=== PATIENT | female | born 2000 | race Caucasian/White ===

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

== ENCOUNTER 2021-02-14 17:19 | Emergency (ER) | payer OTHER ==
--- NOTE | 2021-02-14 17:40 | ERPHSYRPT ---
- History of Present Illness Time Seen by Provider: 02/14/21 17:35 Source: patient Exam Limitations: no limitations Patient Subjective Stated Complaint: Pt states "I was straightening my hair and I got really hot and I passed out. I passed out again in the car when we got here. I just feel really hot." Triage Nursing Assessment: Pt presented alert and oriented X 3, skin wpd pt ambulates with an upright steady gait able to speak in clear full sentences. PT in no apparent respiratory distress. Pt has been crying. Physician History: pt was having her hair straightened and has not eaten today, felt hot and passed out , some sobreath , but no dizziness or chest pain but did hit head when went down and passed out again later in car but felt hot. algerian nexus for head injury discussed with pt but she wishes to proceed with CT after risk and benefit and since this may be a type of seizure is also indicated by that route. nontender C spine excluded by nexus however. neuro vis filds all intact. chest and abd nontender and clear. full ROM all ext. denies meds or any drug use, but agrees to testing. Witnessed: by family, by friend Prior Episodes: multiple episodes today Timing/Duration: today Precipitating Factors: recent head trauma, other (hot and not eating drinking) Context: other (having hair straightened - no chemicals involved. ) Loss of Consciousness: brief (seconds) Charcter of event(s): collapsed, felt faint Allergies/Adverse Reactions: No Known Drug Allergies Allergy (Verified 12/15/20 06:42) Home Medications: Medroxyprogesterone Acet [Depo-Provera] 1 ml IM UD 08/30/20 [History] Hx Tetanus, Diphtheria Vaccination/Date Given: No Hx Influenza Vaccination/Date Given: No Hx Pneumococcal Vaccination/Date Given: No Immunizations Up to Date: Yes Travel Risk - International Travel Have you traveled outside of the country in past 3 weeks: No - Coronavirus Screening Are you exhibiting any of the following symptoms?: No Close contact with a COVID-19 positive Pt in past 14-21 Days: No - Vaccine Status Have you recieved a Covid-19 vaccination: No - Past Medical History Pertinent Past Medical History: Yes Neurological History: No Pertinent History ENT History: No Pertinent History Cardiac History: No Pertinent History Respiratory History: No Pertinent History Endocrine Medical History: No Pertinent History Musculoskeletal History: No Pertinent History GI Medical History: Gallbladder Disease History: No Pertinent History Psycho-Social History: No Pertinent History Female Reproductive Disorders: No Pertinent History Other Medical History: recent n/v, diarrhea, stomach bloating - Past Surgical History Past Surgical History: Yes Neuro Surgical History: No Pertinent History Cardiac: No Pertinent History Respiratory: No Pertinent History Gastrointestinal: Cholecystectomy Genitourinary: No Pertinent History Musculoskeletal: No Pertinent History Female Surgical History: No Pertinent History Other Surgical History: EGD - Social History Smoking Status: Never smoker Exposure to second hand smoke: No Drug Use: none Patient Lives Alone: No - Female History Hx Last Menstrual Period: 01/09/2021 Hx Now: No - Review of Systems Constitutional: No Fever, No Chills Eyes: No Symptoms Ears, Nose, & Throat: No Symptoms Respiratory: No Cough, No Dyspnea Cardiac: No Chest Pain, No Edema, No Syncope Abdominal/Gastrointestinal: No Abdominal Pain, No Nausea, No Vomiting, No Diar giovanni Genitourinary Symptoms: No Dysuria Musculoskeletal: Fall, No Back Pain, No Neck Pain Skin: No Rash Neurological: Headache, No Dizziness, No Focal Weakness, No Sensory Changes Psychological: No Symptoms Endocrine: No Symptoms Hematologic/Lymphatic: No Symptoms Immunological/Allergic: No Symptoms All Other Systems: Reviewed and Negative Physical Exam - Nursing Vital Signs Nursing Vital Signs: Initial Vital Signs Temperature 97.7 F 02/14/21 17:20 Pulse Rate 64 02/14/21 17:20 Respiratory Rate 20 02/14/21 17:20 Blood Pressure 112/70 02/14/21 17:20 O2 Sat by Pulse Oximetry 100 02/14/21 17:20 Pain Scale Pain Intensity 0 - [place] Coma Scale Best Eye Response ([place]): (4) open spontaneously Best Verbal Response (Herve): (5) oriented Best Motor Response (Herve): (6) obeys commands [place] Total: 15 - Physical Exam General Appearance: no apparent distress, alert Eye Exam: bilateral eye: PERRL, EOMI Ears, Nose, Throat Exam: normal ENT inspection, pharynx normal, moist mucous membranes Neck Exam: normal inspection, non-tender, supple, full range of motion Respiratory: normal breath sounds, lungs clear, No chest tenderness, No respiratory distress Cardiovascular: regular rate/rhythm, capillary refill <2 sec, No murmur, No pulse deficit Gastrointestinal: soft, No tenderness, No distention, No mass Pelvic Exam: deferred Rectal Exam: deferred Back Exam: normal inspection, normal range of motion, No CVA tenderness, No vertebral tenderness Extremity Exam: normal inspection, normal range of motion, pelvis stable, No tenderness Peripheral Pulses: carotid (R): 2+, carotid (L): 2+, femoral (R): 2+, femoral (L): 2+, dorsalis-pedis (R): 2+, dorsalis-pedis (L): 2+ Mental Status: alert, oriented x 3, 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 Exam: normal speech, PERRL, No facial droop Coordination/Gait: normal finger to nose Motor/Sensory: no motor deficit, no sensory deficit, no pronator drift DTR: bicep (R): 2+, bicep (L): 2+, tricep (R): 2+, tricep (L): 2+, knee (R): 2+, knee (L): 2+, ankle (R): 2+, ankle (L): 2+ Skin Exam: normal color, warm, dry, No rash SpO2 Interpretation: normal SpO2: 100 O2 Delivery: Room Air - Course Nursing assessment & vital signs reviewed: Yes EKG Interpreted by Me: Sinus Rhythm, NORMAL AXIS, NORMAL INTERVALS, NORMAL QRS, Non-specific ST Changes Ordered Tests: Active Orders 24 hr Category Date Time Status Guidance Counselor STAT Care 02/14/21 17:44 Active Clean Catch Urine Specimen STAT Care 02/14/21 17:42 Active EKG-ER Only STAT Care 02/14/21 17:42 Active IV Insertion STAT Care 02/14/21 17:42 Active Pulse Oximetry (ED) STAT Care 02/14/21 17:42 Active HEAD WITHOUT CONTRAST [CT] Stat Exams 02/14/21 17:43 Completed CBC W DIFF Stat Lab 02/14/21 17:40 Completed CMP Stat Lab 02/14/21 17:40 Completed D-DIMER QUANTITATIVE Stat Lab 02/14/21 17:40 Completed HCG QUALITATIVE,SERUM Stat Lab 02/14/21 17:40 Completed TROPONIN Q3H Lab 02/14/21 17:40 Completed UA W/RFX UR CULTURE Stat Lab 02/14/21 18:06 Completed Urine Triage Profile Stat Lab 02/14/21 18:06 Completed Medication Summary Discontinued Medications Generic Name Dose Route Start Last Admin Trade Name Angelique PRN Reason Stop Dose Admin Sodium Chloride 1,000 mls @ 999 mls/hr 02/14/21 17:42 02/14/21 19:45 Sodium Chloride 0.9% 1000 Ml IV 02/14/21 18:42 Infused .Q1H1M STA Infusion Sodium Chloride Confirm 02/14/21 18:09 Sodium Chloride 0.9% 1000 Ml Administered 02/14/21 18:10 Dose 1,000 mls @ ud .ROUTE .K-MED ONE Lab/Rad Data: Laboratory Result Diagrams 02/14/21 17:40 02/14/21 17:40 Laboratory Results 02/14/21 02/14/21 02/14/21 Range/Units 18:06 18:06 17:40 WBC (4.0-10.5) K/mm3 RBC (4.1-5.4) M/mm3 Hgb (12.0-16.0) gm/dl Hct (35-47) % MCV (78-100) fl MCH (26-32) pg MCHC (32-36) g/dl RDW (11.5-14.0) % Plt Count (150-450) K/mm3 MPV (7.5-11.0) fl Gran % (36.0-66.0) % Eos # (Auto) (0-0.5) Absolute Lymphs (auto) (1.0-4.6) Absolute Monos (auto) (0.0-1.3) Lymphocytes % (24.0-44.0) % Monocytes % (0.0-12.0) % Eosinophils % (0.00-5.0) % Basophils % (0.0-0.4) % Absolute Granulocytes (1.4-6.9) Basophils # (0-0.4) D-Dimer (215-500) ng/mL Sodium (137-145) mmol/L Potassium (3.5-5.1) mmol/L Chloride (98-107) mmol/L Carbon Dioxide (22-30) mmol/L Anion Gap (5-15) MEQ/L BUN (7-17) mg/dL Creatinine (0.52-1.04) mg/dL Estimated GFR ML/MIN Glucose (74-106) mg/dL Calcium (8.4-10.2) mg/dL Total Bilirubin (0.2-1.3) mg/dL AST (14-36) U/L ALT (0-35) U/L Alkaline Phosphatase (38-126) U/L Troponin I < 0.012 (0.000-0.034) ng/mL Serum Total Protein (6.3-8.2) g/dL Albumin (3.5-5.0) g/dL Serum , Qual (Negative) Urine Color YELLOW (YELLOW) Urine Appearance SLIGHTLY CLOUDY (CLEAR) Urine pH 5.0 (5-6) Ur Specific [place] 1.026 (1.005-1.025) Urine Protein NEGATIVE (Negative) Urine Ketones NEGATIVE (NEGATIVE) Urine Blood NEGATIVE (0-5) Jose Luis/ul Urine Nitrite NEGATIVE (NEGATIVE) Urine Bilirubin NEGATIVE (NEGATIVE) Urine Urobilinogen NEGATIVE (0-1) mg/dL Ur Leukocyte Esterase NEGATIVE (NEGATIVE) Urine WBC (Auto) 3-5 (0-5) /HPF Urine RBC (Auto) 0-2 (0-2) /HPF U Epithel Cells (Auto) RARE (FEW) /HPF Urine Bacteria (Auto) NONE (NEGATIVE) /HPF Urine Mucus (Auto) SLIGHT (NEGATIVE) /HPF Urine Culture Reflexed NO (NO) Urine Glucose NEGATIVE (NEGATIVE) mg/dL Urine Opiates Level NEGATIVE (NEGATIVE) Ur Methadone NEGATIVE (NEGATIVE) Urine Barbiturates NEGATIVE (NEGATIVE) Ur Phencyclidine (PCP) NEGATIVE (NEGATIVE) Urine Amphetamine NEGATIVE (NEGATIVE) U Benzodiazepine Level NEGATIVE (NEGATIVE) Urine Cocaine NEGATIVE (NEGATIVE) Urine Marijuana (THC) NEGATIVE (NEGATIVE) 02/14/21 02/14/21 02/14/21 Range/Units 17:40 17:40 17:40 WBC (4.0-10.5) K/mm3 RBC (4.1-5.4) M/mm3 Hgb (12.0-16.0) gm/dl Hct (35-47) % MCV (78-100) fl MCH (26-32) pg MCHC (32-36) g/dl RDW (11.5-14.0) % Plt Count (150-450) K/mm3 MPV (7.5-11.0) fl Gran % (36.0-66.0) % Eos # (Auto) (0-0.5) Absolute Lymphs (auto) (1.0-4.6) Absolute Monos (auto) (0.0-1.3) Lymphocytes % (24.0-44.0) % Monocytes % (0.0-12.0) % Eosinophils % (0.00-5.0) % Basophils % (0.0-0.4) % Absolute Granulocytes (1.4-6.9) Basophils # (0-0.4) D-Dimer 473 (215-500) ng/mL Sodium 140 (137-145) mmol/L Potassium 3.6 (3.5-5.1) mmol/L Chloride 102 (98-107) mmol/L Carbon Dioxide 25 (22-30) mmol/L Anion Gap 15.6 H (5-15) MEQ/L BUN 12 (7-17) mg/dL Creatinine 0.66 (0.52-1.04) mg/dL Estimated GFR > 60.0 ML/MIN Glucose 85 (74-106) mg/dL Calcium 9.7 (8.4-10.2) mg/dL Total Bilirubin 0.70 (0.2-1.3) mg/dL AST 22 (14-36) U/L ALT 16 (0-35) U/L Alkaline Phosphatase 84 (38-126) U/L Troponin I (0.000-0.034) ng/mL Serum Total Protein 8.5 H (6.3-8.2) g/dL Albumin 5.1 H (3.5-5.0) g/dL Serum , Qual NEGATIVE (Negative) Urine Color (YELLOW) Urine Appearance (CLEAR) Urine pH (5-6) Ur Specific [place] (1.005-1.025) Urine Protein (Negative) Urine Ketones (NEGATIVE) Urine Blood (0-5) Jose Luis/ul Urine Nitrite (NEGATIVE) Urine Bilirubin (NEGATIVE) Urine Urobilinogen (0-1) mg/dL Ur Leukocyte Esterase (NEGATIVE) Urine WBC (Auto) (0-5) /HPF Urine RBC (Auto) (0-2) /HPF U Epithel Cells (Auto) (FEW) /HPF Urine Bacteria (Auto) (NEGATIVE) /HPF Urine Mucus (Auto) (NEGATIVE) /HPF Urine Culture Reflexed (NO) Urine Glucose (NEGATIVE) mg/dL Urine Opiates Level (NEGATIVE) Ur Methadone (NEGATIVE) Urine Barbiturates (NEGATIVE) Ur Phencyclidine (PCP) (NEGATIVE) Urine Amphetamine (NEGATIVE) U Benzodiazepine Level (NEGATIVE) Urine Cocaine (NEGATIVE) Urine Marijuana (THC) (NEGATIVE) 02/14/21 Range/Units 17:40 WBC 8.8 (4.0-10.5) K/mm3 RBC 4.76 (4.1-5.4) M/mm3 Hgb 13.3 (12.0-16.0) gm/dl Hct 40.8 (35-47) % MCV 85.7 (78-100) fl MCH 27.9 (26-32) pg MCHC 32.6 (32-36) g/dl RDW 13.0 (11.5-14.0) % Plt Count 267 (150-450) K/mm3 MPV 10.1 (7.5-11.0) fl Gran % 62.0 (36.0-66.0) % Eos # (Auto) 0.11 (0-0.5) Absolute Lymphs (auto) 2.79 (1.0-4.6) Absolute Monos (auto) 0.45 (0.0-1.3) Lymphocytes % 31.6 (24.0-44.0) % Monocytes % 5.1 (0.0-12.0) % Eosinophils % 1.2 (0.00-5.0) % Basophils % 0.1 (0.0-0.4) % Absolute Granulocytes 5.48 (1.4-6.9) Basophils # 0.01 (0-0.4) D-Dimer (215-500) ng/mL Sodium (137-145) mmol/L Potassium (3.5-5.1) mmol/L Chloride (98-107) mmol/L Carbon Dioxide (22-30) mmol/L Anion Gap (5-15) MEQ/L BUN (7-17) mg/dL Creatinine (0.52-1.04) mg/dL Estimated GFR ML/MIN Glucose (74-106) mg/dL Calcium (8.4-10.2) mg/dL Total Bilirubin (0.2-1.3) mg/dL AST (14-36) U/L ALT (0-35) U/L Alkaline Phosphatase (38-126) U/L Troponin I (0.000-0.034) ng/mL Serum Total Protein (6.3-8.2) g/dL Albumin (3.5-5.0) g/dL Serum , Qual (Negative) Urine Color (YELLOW) Urine Appearance (CLEAR) Urine pH (5-6) Ur Specific [place] (1.005-1.025) Urine Protein (Negative) Urine Ketones (NEGATIVE) Urine Blood (0-5) Jose Luis/ul Urine Nitrite (NEGATIVE) Urine Bilirubin (NEGATIVE) Urine Urobilinogen (0-1) mg/dL Ur Leukocyte Esterase (NEGATIVE) Urine WBC (Auto) (0-5) /HPF Urine RBC (Auto) (0-2) /HPF U Epithel Cells (Auto) (FEW) /HPF Urine Bacteria (Auto) (NEGATIVE) /HPF Urine Mucus (Auto) (NEGATIVE) /HPF Urine Culture Reflexed (NO) Urine Glucose (NEGATIVE) mg/dL Urine Opiates Level (NEGATIVE) Ur Methadone (NEGATIVE) Urine Barbiturates (NEGATIVE) Ur Phencyclidine (PCP) (NEGATIVE) Urine Amphetamine (NEGATIVE) U Benzodiazepine Level (NEGATIVE) Urine Cocaine (NEGATIVE) Urine Marijuana (THC) (NEGATIVE) - Progress Progress: improved, re-examined Progress Note: 02/14/21 21:31 discussed limitations of testing performed with pt and that we have not yet determined an etiology and that undetected pathology could still be evolving. she understands and prefers DC with outpt w/u and f/u rather than further eval in ER or hosp obs at this time and has the capacity to make that choice. Counseled pt/family regarding: lab results, diagnosis, need for follow-up, rad results - Departure Departure Disposition: Home Clinical Impression: Syncopal episodes Condition: Good Critical Care Time: No Referrals: DAQUAN HARTLEY [Primary Care Provider] - Instructions: Syncope (Fainting) (DC) Additional Instructions: we have not determined the cause for your fainting even though the testing was not indicating a serious problem at this time , and overheating/lack of eating may have contributed. You should not drive until evaluated by your Dr in case these were some type of seizure. try to see your Dr to continue the workup this week early. heart and other problems also could be evolving and not yet detected even with normal testing so far. return meantime if any concerns or further symptoms.
[2021-02-14] MEDS ORDERED: Sodium Chloride 0.9% 1000 ML 1,000 ML IV STA (17:42)
[2021-02-14 17:57] LABS: Absolute Neutrophil Ct (ANC) 5.48 (1.4-6.9); BASOPHIL % 0.1 % (0.0-0.4); Basophil (Absolute #) 0.01 (0-0.4); Eosinophil % 1.2 % (0.00-5.0); Eosinophil (Absolute #) 0.11 (0-0.5); Hematocrit 40.8 % (35-47); Hemoglobin 13.3 gm/dl (12.0-16.0); Lymphocyte (Absolute #) 2.79 (1.0-4.6); Lymphocytes % 31.6 % (24.0-44.0); Mean Cell Volume 85.7 fl (78-100); Mean Corpuscular Hemoglobin 27.9 pg (26-32); Mean Corpuscular Hgb Concent. 32.6 g/dl (32-36); Mean Platelet Volume 10.1 fl (7.5-11.0); Monocyte (Absolute #) 0.45 (0.0-1.3); Monocytes % 5.1 % (0.0-12.0); Platelet Count 267 K/mm3 (150-450); Red Blood Count 4.76 M/mm3 (4.1-5.4); White Blood Count 8.8 K/mm3 (4.0-10.5)
[2021-02-14 18:07] LABS: ALBUMIN 5.1 g/dL (3.5-5.0); ALKALINE PHOSPHATASE 84 U/L (38-126); ANION GAP 15.6 MEQ/L (5-15); BLOOD UREA NITROGEN 12 mg/dL (7-17); CHLORIDE 102 mmol/L (98-107); Calcium 9.7 mg/dL (8.4-10.2); Carbon Dioxide 25 mmol/L (22-30); Creatinine 1 0.66 mg/dL (0.52-1.04); EST GLOMERULAR FILTRATION RATE > 60.0 ML/MIN; Glucose 85 mg/dL (74-106); Potassium 3.6 mmol/L (3.5-5.1); SGOT/AST 22 U/L (14-36); SGPT/ALT 16 U/L (0-35); SODIUM 140 mmol/L (137-145); Total Protein 8.5 g/dL (6.3-8.2)
[2021-02-14] MEDS ORDERED: Sodium Chloride 0.9% 1000 ML 1,000 ML ONE (18:09)
[2021-02-14 18:34] LABS: Appearance SLIGHTLY CLOUDY (CLEAR); Bilirubin NEGATIVE (NEGATIVE); Blood NEGATIVE Ery/ul (0-5); Epithelial Cells RARE /HPF (FEW); Glucose NEGATIVE (NEGATIVE); Ketones NEGATIVE (NEGATIVE); Leukocyte Esterase NEGATIVE (NEGATIVE); Mucus SLIGHT /HPF (NEGATIVE); Nitrite NEGATIVE (NEGATIVE); Protein,Urine Dip NEGATIVE (Negative); RBC 0-2 /HPF (0-2); Specific Gravity 1.026 (1.005-1.025); Urobilinogen NEGATIVE mg/dL (0-1)
[2021-02-14 18:40] LABS: Amphetamine,Urine NEGATIVE (NEGATIVE); Barbiturate,Urine NEGATIVE (NEGATIVE); Benzodiazepine,Urine NEGATIVE (NEGATIVE); Cocaine,Urine NEGATIVE (NEGATIVE); Methadone,Urine NEGATIVE (NEGATIVE); Opiate,Urine NEGATIVE (NEGATIVE); PCP,Urine NEGATIVE (NEGATIVE); THC,Urine NEGATIVE (NEGATIVE)
[2021-02-14 20:10] VITALS: PULSE 68
--- NOTE | 2021-02-14 20:20 | XRAY ---
Indication: Syncope with posterior head injury. Multiple contiguous axial images obtained through the head without contrast. Comparison: January 30, 2019. Normal appearing brain parenchyma, ventricles, and bony calvarium. Visualized paranasal sinuses and mastoid air cells are clear. Impression: Continued normal CT head without contrast exam. Comment: Preliminary interpretation was made by [facility]. No critical discrepancy.
[2021-02-14 22:08] VITALS: BP 106/68; O2SAT 99
== END 2021-02-14 22:00 | disposition home or self-care (01) ==
LOC: ED 17:19
DX: R55 Syncope and collapse (principal)
CPT/HCPCS: 36000; 36415; 70450; 80053; 80307; 81001; 81025; 84484; 85025; 85379; 93005; 93041; 94760; 96360; 99284

== ENCOUNTER 2021-02-25 20:16 | Emergency (ER) | payer OTHER ==
[2021-02-25 20:29] VITALS: BP 133/70; PULSE 82; O2SAT 98
[2021-02-25] MEDS ORDERED: Augmentin 875-125 Tablet PO ONE (20:32)
[2021-02-25] MEDS ORDERED: TORAdol 30 mg Injection IM ONE (20:32)
[2021-02-25] MEDS ORDERED: Augmentin 875-125 Tablet ONE (20:43)
[2021-02-25] MEDS ORDERED: TORAdol 30 mg Injection ONE (20:43)
--- NOTE | 2021-02-25 20:54 | ERPHSYRPT ---
- History of Present Illness Time Seen by Provider: 02/25/21 20:19 Source: patient, family Exam Limitations: no limitations Patient Subjective Stated Complaint: . Triage Nursing Assessment: . Physician History: 21 years old female presented in the ER with chief complaint of right upper leg chest below the knee with dog bite. Patient reports she went to her neighbor's house and got bit by their dog. There was bleeding initially but stopped after applying pressure. She does not have any big laceration but has bite hermosillo multiple sites. She is up-to-date with immunizations. She is complaining of dull aching to sharp moderate intensity pain which is more with palpation and movements of right knee and better with being still. Unsure about immunization status of the dog. PD is aware and dog is at neighbors house. Allergies/Adverse Reactions: No Known Drug Allergies Allergy (Verified 02/25/21 20:25) Home Medications: Medroxyprogesterone Acet [Depo-Provera] 1 ml IM UD 08/30/20 [History] Escitalopram Oxalate 10 mg [Lexapro 10 MG] 10 mg PO DAILY 02/25/21 [History] Hx Tetanus, Diphtheria Vaccination/Date Given: Yes Hx Influenza Vaccination/Date Given: No Hx Pneumococcal Vaccination/Date Given: No Immunizations Up to Date: Yes Travel Risk - International Travel Have you traveled outside of the country in past 3 weeks: No - Coronavirus Screening Are you exhibiting any of the following symptoms?: No Close contact with a COVID-19 positive Pt in past 14-21 Days: No - Vaccine Status Have you recieved a Covid-19 vaccination: No - Review of Systems Constitutional: No Symptoms Eyes: No Symptoms Ears, Nose, & Throat: No Symptoms Respiratory: No Symptoms Cardiac: No Symptoms Abdominal/Gastrointestinal: No Symptoms Genitourinary Symptoms: No Symptoms Musculoskeletal: Injury Skin: Induration, Skin Lesions Neurological: No Symptoms Psychological: No Symptoms Endocrine: No Symptoms Hematologic/Lymphatic: No Symptoms Immunological/Allergic: No Symptoms - Past Medical History Pertinent Past Medical History: Yes Neurological History: No Pertinent History ENT History: No Pertinent History Cardiac History: No Pertinent History Respiratory History: No Pertinent History Endocrine Medical History: No Pertinent History Musculoskeletal History: No Pertinent History GI Medical History: No Pertinent History History: No Pertinent History Psycho-Social History: Anxiety, Depression Female Reproductive Disorders: No Pertinent History Other Medical History: recent n/v, diarrhea, stomach bloating - Past Surgical History Past Surgical History: Yes Neuro Surgical History: No Pertinent History Cardiac: No Pertinent History Respiratory: No Pertinent History Gastrointestinal: Cholecystectomy Genitourinary: No Pertinent History Musculoskeletal: No Pertinent History Female Surgical History: No Pertinent History Other Surgical History: EGD - Social History Smoking Status: Never smoker Exposure to second hand smoke: No Drug Use: none Patient Lives Alone: No - Female History Hx Last Menstrual Period: DEPO-PROVERA Hx Now: No - Nursing Vital Signs Nursing Vital Signs: Initial Vital Signs Temperature 98.6 F 02/25/21 20:28 Pulse Rate 82 02/25/21 20:28 Respiratory Rate 18 02/25/21 20:28 Blood Pressure 133/70 02/25/21 20:28 O2 Sat by Pulse Oximetry 98 02/25/21 20:28 Pain Scale Pain Intensity 10 - Physical Exam General Appearance: no apparent distress Neck Exam: normal inspection, supple, full range of motion Cardiovascular/Respiratory Exam: normal breath sounds, regular rate/rhythm Legs Exam: right leg: pain, soft tissue tenderness, swelling, other (Multiple stab/bite hermosillo just below her right knee. Intact range of motion of right knee. No active bleeding or spurting. Abrasion and scratches as well.), left leg: non-tender, normal inspection, normal range of motion, no evidence of injury Knees Exam: bilateral knee: non-tender, normal inspection, normal range of motion, no evidence of injury Neuro/Tendon Exam: normal sensation, normal motor functions, normal tendon functions Mental Status Exam: alert, oriented x 3, cooperative Skin Exam: normal color SpO2 Interpretation: normal SpO2: 98 O2 Delivery: Room Air Ordered Tests: Medication Summary Discontinued Medications Generic Name Dose Route Start Last Admin Trade Name Freq PRN Reason Stop Dose Admin Amoxicillin/Clavulanate Potassium 875 mg 02/25/21 20:32 02/25/21 20:45 Augmentin 875-125 Tablet PO 02/25/21 20:33 875 mg STAT ONE Administration Amoxicillin/Clavulanate Potassium Confirm 02/25/21 20:43 Augmentin 875-125 Tablet Administered 02/25/21 20:44 Dose 875 mg .ROUTE .STK-MED ONE Ketorolac Tromethamine 30 mg 02/25/21 20:32 02/25/21 20:49 Toradol 30 Mg Injection IM 02/25/21 20:33 30 mg STAT ONE Administration Ketorolac Tromethamine Confirm 02/25/21 20:43 Toradol 30 Mg Injection Administered 02/25/21 20:44 Dose 30 mg .ROUTE .STK-MED ONE - Progress Progress: improved Progress Note: 02/25/21 21:41 She is given Toradol for symptomatic relief and started on Augmentin. Of multiple stab wound from dog's teeth does not need any suturing. Thoroughly cleaned and dressing applied. Animal bite paperwork is filled and will be sent to health department. Dog is not showing any signs of being rabid. Do not think needs antirabies vaccine. Recommended outpatient follow-up. Counseled pt/family regarding: diagnosis, need for follow-up - Departure Departure Disposition: Home Clinical Impression: Dog bite Qualifiers: Encounter type: initial encounter Qualified Code(s): W54.0XXA - Bitten by dog, initial encounter Condition: Stable Critical Care Time: No Referrals: DAQUAN HARTLEY [Primary Care Provider] - (1-2 days for reevaluation) Instructions: Animal Bites (DC) Additional Instructions: Take Tylenol/ibuprofen as needed for pain. Keep it clean and follow-up with primary care physician for reevaluation in the next couple of days. Return to ER for increasing pain swelling redness discharge, limiting movements of right knee or if develop fever chills. Prescriptions: Ibuprofen 600 mg PO Q6HPRN PRN 10 Days #20 tablet PRN Reason: Pain Amox Tr/Potass Clav. 875 mg [Augmentin 875-125 Tablet] 875 mg PO BID #14 tablet
== END 2021-02-25 21:47 | disposition home or self-care (01) ==
LOC: ED 20:16
DX: S80.211A Abrasion, right knee, initial encounter (principal); S81.051A Open bite, right knee, initial encounter; R26.0 Ataxic gait; W54.0XXA Bitten by dog, initial encounter
CPT/HCPCS: 96372; 99284; J1885; A9270-GY

== ENCOUNTER 2021-04-08 13:56 | Emergency (ER) | payer OTHER ==
[2012-11-24 01:11] VITALS: BP 125/62
== END 2021-04-08 14:40 | disposition home or self-care (01) ==
LOC: ED 13:56
DX: Z53.9 Procedure and treatment not carried out, unspecified reason (principal)
CPT/HCPCS: 99282

== ENCOUNTER 2021-07-31 23:26 | Emergency (ER) | payer OTHER ==
--- NOTE | 2021-07-31 23:35 | ERPHSYRPT ---
- History of Present Illness Time Seen by Provider: 07/31/21 23:35 Source: patient Exam Limitations: no limitations Physician History: This is a 21-year-old white female who has had a history of dizziness and syncopal episodes in the past and presents with approximately 2-day history of intermittent dizziness. The most recent episode was just prior to arrival to the emergency room. [place] and suddenly felt very dizzy and flushed. Patient denies chest pain. She denies nausea vomiting diarrhea. She has no abdominal pain. She has not had any fevers. Patient denies illicit drug use. She denies any new medications. She denies head injury. Timing/Duration: day(s) (2), intermittent, worse Severity: mild Character of Deficits: none Deficits: no difficulties Baseline/Normal Cognition: alert oriented x 3 Current Cognition: alert oriented x 3 Baseline Gait: walks w/o assistance Associated Symptoms: denies symptoms Allergies/Adverse Reactions: No Known Drug Allergies Allergy (Verified 07/31/21 23:37) Home Medications: Medroxyprogesterone Acet [Depo-Provera] 1 ml IM UD 08/30/20 [History] Escitalopram Oxalate 10 mg [Lexapro 10 MG] 10 mg PO DAILY 02/25/21 [History] Pantoprazole 20 mg [Protonix 20MG Tablet] 20 mg PO DAILY 07/31/21 [History] Hx Tetanus, Diphtheria Vaccination/Date Given: Yes Hx Influenza Vaccination/Date Given: No Hx Pneumococcal Vaccination/Date Given: No Travel Risk - International Travel Have you traveled outside of the country in past 3 weeks: No - Coronavirus Screening Are you exhibiting any of the following symptoms?: No Close contact with a COVID-19 positive Pt in past 14-21 Days: No - Vaccine Status Have you recieved a Covid-19 vaccination: No - Review of Systems Constitutional: No Symptoms Eyes: No Symptoms Ears, Nose, & Throat: No Symptoms Respiratory: No Symptoms Cardiac: No Symptoms Abdominal/Gastrointestinal: No Symptoms Genitourinary Symptoms: No Symptoms Musculoskeletal: No Symptoms Skin: No Symptoms Neurological: Dizziness Psychological: No Symptoms Endocrine: No Symptoms Hematologic/Lymphatic: No Symptoms Immunological/Allergic: No Symptoms All Other Systems: Reviewed and Negative - Past Medical History Pertinent Past Medical History: Yes Neurological History: No Pertinent History ENT History: No Pertinent History Cardiac History: No Pertinent History Respiratory History: No Pertinent History Endocrine Medical History: No Pertinent History Musculoskeletal History: No Pertinent History GI Medical History: No Pertinent History History: No Pertinent History Psycho-Social History: Anxiety, Depression Female Reproductive Disorders: No Pertinent History Other Medical History: recent n/v, diarrhea, stomach bloating - Past Surgical History Past Surgical History: Yes Neuro Surgical History: No Pertinent History Cardiac: No Pertinent History Respiratory: No Pertinent History Gastrointestinal: Cholecystectomy Genitourinary: No Pertinent History Musculoskeletal: No Pertinent History Female Surgical History: No Pertinent History Other Surgical History: EGD - Social History Smoking Status: Never smoker Exposure to second hand smoke: No Drug Use: none Patient Lives Alone: No - Nursing Vital Signs Nursing Vital Signs: Initial Vital Signs Temperature 98.9 F 07/31/21 23:38 Pulse Rate 75 07/31/21 23:38 Blood Pressure 116/76 07/31/21 23:38 O2 Sat by Pulse Oximetry 97 07/31/21 23:38 Pain Scale Pain Intensity 0 - Herve Coma Scale Best Eye Response ([place]): (4) open spontaneously Best Verbal Response ([place]): (5) oriented Best Motor Response ([place]): (6) obeys commands [place] Total: 15 - Physical Exam General Appearance: no apparent distress, alert, anxiety Eye Exam: bilateral eye: normal inspection, PERRL, EOMI Ears, Nose, Throat Exam: normal ENT inspection, moist mucous membranes Neck Exam: normal inspection, non-tender, supple, full range of motion Respiratory: normal breath sounds, lungs clear, airway intact, No chest tenderness, No respiratory distress Cardiovascular: regular rate/rhythm, normal heart sounds, normal peripheral pulses Gastrointestinal: soft, normal bowel sounds, No tenderness Pelvic Exam: not done Rectal Exam: not done Back Exam: normal inspection, normal range of motion, No CVA tenderness, No vertebral tenderness Extremity Exam: normal inspection, normal range of motion, pelvis stable Mental Status: alert, oriented x 3, 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 When compared to EKG dated 02/14/2021, there are no changes.) Ordered Tests: Active Orders 24 hr Category Date Time Status EKG-ER Only STAT Care 08/01/21 00:04 Active CBC W DIFF Stat Lab 08/01/21 00:19 Completed CMP Stat Lab 08/01/21 00:19 Completed HCG,QUALITATIVE URINE Stat Lab 08/01/21 00:06 Completed UA W/RFX UR CULTURE Stat Lab 08/01/21 00:06 Completed Urine Triage Profile Stat Lab 08/01/21 00:09 Completed Lab/Rad Data: Laboratory Result Diagrams 08/01/21 00:19 08/01/21 00:19 Laboratory Results 08/01/21 08/01/21 08/01/21 Range/Units 00:19 00:19 00:09 WBC 8.0 (4.0-10.5) K/mm3 RBC 4.33 (4.1-5.4) M/mm3 Hgb 12.2 (12.0-16.0) gm/dl Hct 37.8 (35-47) % MCV 87.3 (78-100) fl MCH 28.2 (26-32) pg MCHC 32.3 (32-36) g/dl RDW 12.9 (11.5-14.0) % Plt Count 225 (150-450) K/mm3 MPV 10.4 (7.5-11.0) fl Gran % 55.8 (36.0-66.0) % Eos # (Auto) 0.14 (0-0.5) Absolute Lymphs (auto) 2.78 (1.0-4.6) Absolute Monos (auto) 0.59 (0.0-1.3) Lymphocytes % 34.9 (24.0-44.0) % Monocytes % 7.4 (0.0-12.0) % Eosinophils % 1.8 (0.00-5.0) % Basophils % 0.1 (0.0-0.4) % Absolute Granulocytes 4.44 (1.4-6.9) Basophils # 0.01 (0-0.4) Sodium 139 (137-145) mmol/L Potassium 4.4 (3.5-5.1) mmol/L Chloride 103 (98-107) mmol/L Carbon Dioxide 25 (22-30) mmol/L Anion Gap 15.7 H (5-15) MEQ/L BUN 13 (7-17) mg/dL Creatinine 0.59 (0.52-1.04) mg/dL Estimated GFR > 60.0 ML/MIN Glucose 95 (74-106) mg/dL Calcium 9.1 (8.4-10.2) mg/dL Total Bilirubin 0.50 (0.2-1.3) mg/dL AST 21 (14-36) U/L ALT 15 (0-35) U/L Alkaline Phosphatase 81 (38-126) U/L Serum Total Protein 7.7 (6.3-8.2) g/dL Albumin 4.5 (3.5-5.0) g/dL Urine Color (YELLOW) Urine Appearance (CLEAR) Urine pH (5-6) Ur Specific [place] (1.005-1.025) Urine Protein (Negative) Urine Ketones (NEGATIVE) Urine Blood (0-5) Jose Luis/ul Urine Nitrite (NEGATIVE) Urine Bilirubin (NEGATIVE) Urine Urobilinogen (0-1) mg/dL Ur Leukocyte Esterase (NEGATIVE) Urine WBC (Auto) (0-5) /HPF Urine RBC (Auto) (0-2) /HPF U Epithel Cells (Auto) (FEW) /HPF Urine Bacteria (Auto) (NEGATIVE) /HPF Urine Mucus (Auto) (NEGATIVE) /HPF Urine Culture Reflexed (NO) Urine Glucose (NEGATIVE) mg/dL Urine HCG, Qual (Negative) Urine Opiates Level NEGATIVE (NEGATIVE) Ur Methadone NEGATIVE (NEGATIVE) Urine Barbiturates NEGATIVE (NEGATIVE) Ur Phencyclidine (PCP) NEGATIVE (NEGATIVE) Urine Amphetamine NEGATIVE (NEGATIVE) U Benzodiazepine Level NEGATIVE (NEGATIVE) Urine Cocaine NEGATIVE (NEGATIVE) Urine Marijuana (THC) NEGATIVE (NEGATIVE) 08/01/21 08/01/21 Range/Units 00:06 00:06 WBC (4.0-10.5) K/mm3 RBC (4.1-5.4) M/mm3 Hgb (12.0-16.0) gm/dl Hct (35-47) % MCV (78-100) fl MCH (26-32) pg MCHC (32-36) g/dl RDW (11.5-14.0) % Plt Count (150-450) K/mm3 MPV (7.5-11.0) fl Gran % (36.0-66.0) % Eos # (Auto) (0-0.5) Absolute Lymphs (auto) (1.0-4.6) Absolute Monos (auto) (0.0-1.3) Lymphocytes % (24.0-44.0) % Monocytes % (0.0-12.0) % Eosinophils % (0.00-5.0) % Basophils % (0.0-0.4) % Absolute Granulocytes (1.4-6.9) Basophils # (0-0.4) Sodium (137-145) mmol/L Potassium (3.5-5.1) mmol/L Chloride (98-107) mmol/L Carbon Dioxide (22-30) mmol/L Anion Gap (5-15) MEQ/L BUN (7-17) mg/dL Creatinine (0.52-1.04) mg/dL Estimated GFR ML/MIN Glucose (74-106) mg/dL Calcium (8.4-10.2) mg/dL Total Bilirubin (0.2-1.3) mg/dL AST (14-36) U/L ALT (0-35) U/L Alkaline Phosphatase (38-126) U/L Serum Total Protein (6.3-8.2) g/dL Albumin (3.5-5.0) g/dL Urine Color YELLOW (YELLOW) Urine Appearance SLIGHTLY CLOUDY (CLEAR) Urine pH 6.0 (5-6) Ur Specific [place] 1.028 (1.005-1.025) Urine Protein NEGATIVE (Negative) Urine Ketones NEGATIVE (NEGATIVE) Urine Blood NEGATIVE (0-5) Jose Luis/ul Urine Nitrite NEGATIVE (NEGATIVE) Urine Bilirubin NEGATIVE (NEGATIVE) Urine Urobilinogen 2 (0-1) mg/dL Ur Leukocyte Esterase NEGATIVE (NEGATIVE) Urine WBC (Auto) 6-10 (0-5) /HPF Urine RBC (Auto) NONE (0-2) /HPF U Epithel Cells (Auto) RARE (FEW) /HPF Urine Bacteria (Auto) NONE (NEGATIVE) /HPF Urine Mucus (Auto) SLIGHT (NEGATIVE) /HPF Urine Culture Reflexed NO (NO) Urine Glucose NEGATIVE (NEGATIVE) mg/dL Urine HCG, Qual NEGATIVE (Negative) Urine Opiates Level (NEGATIVE) Ur Methadone (NEGATIVE) Urine Barbiturates (NEGATIVE) Ur Phencyclidine (PCP) (NEGATIVE) Urine Amphetamine (NEGATIVE) U Benzodiazepine Level (NEGATIVE) Urine Cocaine (NEGATIVE) Urine Marijuana (THC) (NEGATIVE) - Departure Departure Disposition: Home Clinical Impression: Vertigo Condition: Stable Critical Care Time: No Referrals: DAQUAN HARTLEY [Primary Care Provider] - Additional Instructions: Drink plenty of fluids. Keep your appointment with your primary care physician that you have scheduled on 08/03/2021. Take your medication as prescribed. Prescriptions: Meclizine HCl 12.5 mg PO TID PRN #10 tablet PRN Reason: Dizziness
[2021-08-01 00:22] LABS: Absolute Neutrophil Ct (ANC) 4.44 (1.4-6.9); BASOPHIL % 0.1 % (0.0-0.4); Basophil (Absolute #) 0.01 (0-0.4); Eosinophil % 1.8 % (0.00-5.0); Eosinophil (Absolute #) 0.14 (0-0.5); Hematocrit 37.8 % (35-47); Hemoglobin 12.2 gm/dl (12.0-16.0); Lymphocyte (Absolute #) 2.78 (1.0-4.6); Lymphocytes % 34.9 % (24.0-44.0); Mean Cell Volume 87.3 fl (78-100); Mean Corpuscular Hemoglobin 28.2 pg (26-32); Mean Corpuscular Hgb Concent. 32.3 g/dl (32-36); Mean Platelet Volume 10.4 fl (7.5-11.0); Monocyte (Absolute #) 0.59 (0.0-1.3); Monocytes % 7.4 % (0.0-12.0); Neutrophil % 55.8 % (36.0-66.0); Platelet Count 225 K/mm3 (150-450); Red Blood Count 4.33 M/mm3 (4.1-5.4); Red Cell Distribution Width 12.9 % (11.5-14.0)
[2021-08-01 00:25] LABS: Appearance SLIGHTLY CLOUDY (CLEAR); Bilirubin NEGATIVE (NEGATIVE); Blood NEGATIVE Ery/ul (0-5); Epithelial Cells RARE /HPF (FEW); Glucose NEGATIVE (NEGATIVE); Ketones NEGATIVE (NEGATIVE); Leukocyte Esterase NEGATIVE (NEGATIVE); Mucus SLIGHT /HPF (NEGATIVE); Nitrite NEGATIVE (NEGATIVE); Protein,Urine Dip NEGATIVE (Negative); Specific Gravity 1.028 (1.005-1.025); Urobilinogen 2 mg/dL (0-1)
[2021-08-01 00:27] LABS: Barbiturate,Urine NEGATIVE (NEGATIVE); Benzodiazepine,Urine NEGATIVE (NEGATIVE); Cocaine,Urine NEGATIVE (NEGATIVE); Methadone,Urine NEGATIVE (NEGATIVE); Opiate,Urine NEGATIVE (NEGATIVE); PCP,Urine NEGATIVE (NEGATIVE); THC,Urine NEGATIVE (NEGATIVE)
[2021-08-01 00:32] LABS: Amphetamine,Urine NEGATIVE (NEGATIVE)
[2021-08-01 00:33] LABS: ALBUMIN 4.5 g/dL (3.5-5.0); ALKALINE PHOSPHATASE 81 U/L (38-126); ANION GAP 15.7 MEQ/L (5-15); BLOOD UREA NITROGEN 13 mg/dL (7-17); CHLORIDE 103 mmol/L (98-107); Calcium 9.1 mg/dL (8.4-10.2); Carbon Dioxide 25 mmol/L (22-30); Creatinine 1 0.59 mg/dL (0.52-1.04); EST GLOMERULAR FILTRATION RATE > 60.0 ML/MIN; Glucose 95 mg/dL (74-106); Potassium 4.4 mmol/L (3.5-5.1); SGOT/AST 21 U/L (14-36); SGPT/ALT 15 U/L (0-35); SODIUM 139 mmol/L (137-145); Total Protein 7.7 g/dL (6.3-8.2)
[2021-08-01] MEDS ORDERED: ANTIVERT 25 MG PO ONE (00:37)
[2021-08-01] MEDS ORDERED: ANTIVERT 25 MG ONE (00:39)
[2021-08-01 00:49] VITALS: BP 112/76; PULSE 70; O2SAT 99
== END 2021-08-01 00:51 | disposition home or self-care (01) ==
LOC: ED 23:26
DX: R42 Dizziness and giddiness (principal); R55 Syncope and collapse; Z79.899 Other long term (current) drug therapy
CPT/HCPCS: 36415; 80053; 80307; 81001; 84703; 85025; 93005; 99284; A9270-GY

== ENCOUNTER 2021-09-19 00:51 | Emergency (ER) | payer OTHER ==
[2012-11-24 01:11] VITALS: BP 125/62
--- NOTE | 2021-09-19 02:35 | ERPHSYRPT ---
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 Pt states that she has a mild GARCIA and is currently being treated for migraine headaches. She denies injury. Pt denies focal weakness/CP/dyspnea/N/V/D//cough/fever. Witnessed: unwitnessed Prior Episodes: single episode today Timing/Duration: other (1:00AM) Precipitating Factors: unknown Context: standing Loss of Consciousness: brief (seconds) [place] of event(s): collapsed Allergies/Adverse Reactions: No Known Drug Allergies Allergy (Verified 07/31/21 23:37) Home Medications: Escitalopram Oxalate 10 mg [Lexapro 10 MG] 10 mg PO DAILY 02/25/21 [History] Hydroxyzine HCl 10 mg PO DAILY 09/19/21 [History] Meclizine HCl 12.5 mg PO BID PRN 09/19/21 [History] Omeprazole 20 mg PO DAILY 09/19/21 [History] Sertraline HCl 50 mg [Zoloft 50 mg Tablet] 50 mg PO BID 09/19/21 [History] Topiramate 25 mg PO DAILY 09/19/21 [History] Hx Tetanus, Diphtheria Vaccination/Date Given: Yes Hx Influenza Vaccination/Date Given: No Hx Pneumococcal Vaccination/Date Given: No Immunizations Up to Date: Yes Travel Risk - International Travel Have you traveled outside of the country in past 3 weeks: No - Coronavirus Screening Are you exhibiting any of the following symptoms?: No Close contact with a COVID-19 positive Pt in past 14-21 Days: No - Vaccine Status Have you recieved a Covid-19 vaccination: No - Past Medical History Pertinent Past Medical History: Yes Neurological History: Migraines, Other ENT History: No Pertinent History Cardiac History: No Pertinent History Respiratory History: No Pertinent History Endocrine Medical History: No Pertinent History Musculoskeletal History: No Pertinent History GI Medical History: GERD History: No Pertinent History Psycho-Social History: Anxiety, Depression Female Reproductive Disorders: No Pertinent History Other Medical History: recent n/v, diarrhea, stomach bloating - Past Surgical History Past Surgical History: Yes Neuro Surgical History: No Pertinent History Cardiac: No Pertinent History Respiratory: No Pertinent History Gastrointestinal: Cholecystectomy Genitourinary: No Pertinent History Musculoskeletal: No Pertinent History Female Surgical History: No Pertinent History Other Surgical History: EGD - Social History Smoking Status: Never smoker Exposure to second hand smoke: No Drug Use: none Patient Lives Alone: No Significant Family History: no pertinent family hx - Female History Hx Now: No - Review of Systems Constitutional: No Symptoms Eyes: No Symptoms Ears, Nose, & Throat: No Symptoms Respiratory: No Symptoms Cardiac: No Symptoms Abdominal/Gastrointestinal: No Symptoms Genitourinary Symptoms: No Symptoms Musculoskeletal: No Symptoms Skin: No Symptoms Neurological: No Symptoms, Headache Psychological: No Symptoms Endocrine: No Symptoms Hematologic/Lymphatic: No Symptoms Immunological/Allergic: No Symptoms Physical Exam - Nursing Vital Signs Nursing Vital Signs: Initial Vital Signs Temperature 98.4 F 09/19/21 01:39 Pulse Rate 74 09/19/21 01:39 Respiratory Rate 18 09/19/21 01:39 Blood Pressure 123/85 09/19/21 01:39 O2 Sat by Pulse Oximetry 100 09/19/21 01:39 Pain Scale Pain Intensity 7 WNL - Herve Coma Scale Best Eye Response ([place]): (4) open spontaneously Best Verbal Response ([place]): (5) oriented Best Motor Response ([place]): (6) obeys commands [place] Total: 15 - Physical Exam General Appearance: no apparent distress Eye Exam: bilateral eye: normal inspection, PERRL, EOMI Ears, Nose, Throat Exam: normal ENT inspection, TMs normal, pharynx normal, moist mucous membranes Neck Exam: normal inspection, non-tender, supple, full range of motion, No meningismus, No mass, No Brudzinski, No Kernig's, No carotid bruit Respiratory: normal breath sounds, lungs clear, airway intact Cardiovascular: regular rate/rhythm, normal heart sounds, normal peripheral pulses, No murmur Gastrointestinal: soft, normal bowel sounds, No tenderness Back Exam: normal inspection, normal range of motion, No CVA tenderness, No vertebral tenderness Extremity Exam: normal inspection, normal range of motion, pelvis stable Peripheral Pulses: carotid (R): 2+, carotid (L): 2+ Mental Status: alert, oriented x 3, 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, 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 Exam: normal hearing, normal speech, PERRL, abnormal eye position, abnormal gag reflex, No abnormal pupil position, No abnormal speech, No facial asymmetry, No facial droop, No facial paresthesias, No facial weakness Coordination/Gait: normal finger to nose, normal gait, normal cerebellar function, negative Romberg's sign Motor/Sensory: no motor deficit, no sensory deficit, no pronator drift, negative Babinski's sign DTR: bicep (R): 2+, bicep (L): 2+ Skin Exam: normal color, warm, dry, No rash SpO2 Interpretation: normal SpO2: 100 O2 Delivery: Room Air - Course Nursing assessment & vital signs reviewed: Yes Ordered Tests: Active Orders 24 hr Category Date Time Status EKG-ER Only STAT Care 09/19/21 01:49 Completed - Progress Progress Note: 09/19/21 02:38 Pt left AMA after Lab work/CT head/EKG/UA ordered - Departure Departure Disposition: AMA Clinical Impression: Syncope and collapse Condition: Stable Critical Care Time: No Referrals: DAQUAN HARTLEY [Primary Care Provider] - Follow up/PCP as directed
== END 2021-09-19 02:00 | disposition left against medical advice (07) ==
LOC: ED 00:51
DX: R55 Syncope and collapse (principal); R51.9 Headache, unspecified; Z79.899 Other long term (current) drug therapy
CPT/HCPCS: 99283

== ENCOUNTER 2022-01-02 22:07 | Emergency (ER) | payer OTHER ==
[2022-01-02] MEDS ORDERED: Sodium Chloride 0.9% 1000 ML 1,000 ML IV STA (22:27)
--- NOTE | 2022-01-02 22:27 | ERPHSYRPT ---
- History of Present Illness Time Seen by Provider: 01/02/22 22:10 Source: patient, EMS Exam Limitations: no limitations Physician History: This is a 21-year-old white female patient of Dr. Dennis who presents with "blacking out" that occurred prior to arrival. EMS brought the patient into the hospital. Her blood sugar was in the normal range. Patient states that she has a history of vertigo. She did not have an episode of vertigo today. She states that she suddenly felt weak and numb and sweaty and nauseated. She then stated she blacked out. She does not have any new medications. She denies illicit drug use. She states she did not hit her head. Patient states that she is not under any new or different or extreme stress. Patient states she is feeling better now but is a little weak. She states she has no headache. She does not have chest pain. She is not short of breath. Patient does have a history of migraine headaches and anxiety. Timing/Duration: today Severity: mild Associated Symptoms: nausea, weakness Allergies/Adverse Reactions: No Known Drug Allergies Allergy (Verified 01/02/22 22:31) Home Medications: Meclizine HCl 12.5 mg PO BID PRN 09/19/21 [History] Omeprazole 20 mg PO DAILY 09/19/21 [History] Sertraline HCl 50 mg [Zoloft 50 mg Tablet] 50 mg PO BID 09/19/21 [History] Topiramate 25 mg PO DAILY 09/19/21 [History] hydrOXYzine HCL [Hydroxyzine HCl] 10 mg PO TID 09/19/21 [History] Hx Tetanus, Diphtheria Vaccination/Date Given: Yes Hx Influenza Vaccination/Date Given: No Hx Pneumococcal Vaccination/Date Given: No Travel Risk - International Travel Have you traveled outside of the country in past 3 weeks: No - Coronavirus Screening Are you exhibiting any of the following symptoms?: No Close contact with a COVID-19 positive Pt in past 14-21 Days: No - Vaccine Status Have you recieved a Covid-19 vaccination: No - Review of Systems Constitutional: Weakness Eyes: No Symptoms Ears, Nose, & Throat: No Symptoms Respiratory: No Symptoms Cardiac: No Symptoms Abdominal/Gastrointestinal: No Symptoms Genitourinary Symptoms: No Symptoms Musculoskeletal: No Symptoms Skin: No Symptoms Neurological: No Symptoms Psychological: No Symptoms Endocrine: No Symptoms Hematologic/Lymphatic: No Symptoms Immunological/Allergic: No Symptoms All Other Systems: Reviewed and Negative - Past Medical History Pertinent Past Medical History: Yes Neurological History: Migraines, Other ENT History: No Pertinent History Cardiac History: No Pertinent History Respiratory History: No Pertinent History Endocrine Medical History: No Pertinent History Musculoskeletal History: No Pertinent History GI Medical History: GERD History: No Pertinent History Psycho-Social History: Anxiety, Depression Female Reproductive Disorders: No Pertinent History Other Medical History: recent n/v, diarrhea, stomach bloating - Past Surgical History Past Surgical History: Yes Neuro Surgical History: No Pertinent History Cardiac: No Pertinent History Respiratory: No Pertinent History Gastrointestinal: Cholecystectomy Genitourinary: No Pertinent History Musculoskeletal: No Pertinent History Female Surgical History: No Pertinent History Other Surgical History: EGD - Social History Smoking Status: Never smoker Exposure to second hand smoke: No Drug Use: none Patient Lives Alone: No Significant Family History: no pertinent family hx - Nursing Vital Signs Nursing Vital Signs: Initial Vital Signs Temperature 98.1 F 01/02/22 22:09 Pulse Rate 69 01/02/22 22:09 Respiratory Rate 16 01/02/22 22:09 Blood Pressure 104/65 01/02/22 22:09 O2 Sat by Pulse Oximetry 100 01/02/22 22:09 Pain Scale Pain Intensity 0 - Physical Exam General Appearance: no apparent distress, alert, anxiety Eye Exam: PERRL/EOMI, eyes nml inspection Ears, Nose, Throat Exam: normal ENT inspection, moist mucous membranes Neck Exam: normal inspection, non-tender, supple, full range of motion Respiratory Exam: normal breath sounds, lungs clear, airway intact, No chest tenderness, No respiratory distress Cardiovascular Exam: regular rate/rhythm, normal heart sounds, normal peripheral pulses Gastrointestinal/Abdomen Exam: soft, normal bowel sounds, No tenderness Pelvic Exam: not done Rectal Exam: not done Back Exam: normal inspection, normal range of motion, No CVA tenderness, No vertebral tenderness Extremity Exam: normal inspection, normal range of motion, pelvis stable Neurologic Exam: alert, oriented x 3, cooperative, 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 No changes from the comparison EKG dated 07/31/2021) Ordered Tests: Active Orders 24 hr Category Date Time Status Clean Catch Urine Specimen STAT Care 01/02/22 22:27 Active EKG-ER Only STAT Care 01/02/22 22:27 Active IV Insertion STAT Care 01/02/22 22:27 Active Pulse Oximetry (ED) STAT Care 01/02/22 22:27 Active HEAD WITHOUT CONTRAST [CT] Stat Exams 01/02/22 22:28 Taken CBC W DIFF Stat Lab 01/02/22 22:32 Completed CMP Stat Lab 01/02/22 22:32 Completed COVID AG-BINAX NOW RAPID TEST Stat Lab 01/02/22 22:44 Completed ETHYL ALCOHOL Stat Lab 01/02/22 22:32 Completed HCG,QUALITATIVE URINE Stat Lab 01/02/22 22:31 Completed INFLUENZA A+B CANDY Stat Lab 01/02/22 22:44 Completed [place] Screen Stat Lab 01/02/22 22:32 Completed UA W/RFX UR CULTURE Stat Lab 01/02/22 22:31 Completed Urine Triage Profile Stat Lab 01/02/22 22:31 Completed Medication Summary Discontinued Medications Generic Name Dose Route Start Last Admin Trade Name Yehudaq PRN Reason Stop Dose Admin Sodium Chloride 1,000 mls @ 999 mls/hr 01/02/22 22:27 01/02/22 22:40 Sodium Chloride 0.9% 1000 Ml IV 01/02/22 23:27 999 mls/hr .Q1H1M STA Administration Sodium Chloride Confirm 01/02/22 22:37 Sodium Chloride 0.9% 1000 Ml Administered 01/02/22 22:38 Dose 1,000 mls @ ud .ROUTE .STK-MED ONE Ondansetron HCl 4 mg 01/02/22 22:28 01/02/22 22:40 Ondansetron Hcl 4 Mg/2 Ml Vial IV 01/02/22 22:29 4 mg STAT STA Administration Ondansetron HCl Confirm 01/02/22 22:37 Ondansetron Hcl 4 Mg/2 Ml Vial Administered 01/02/22 22:38 Dose 4 mg .ROUTE .STK-MED ONE Lab/Rad Data: Laboratory Result Diagrams 01/02/22 22:32 01/02/22 22:32 Laboratory Results 01/02/22 01/02/22 01/02/22 Range/Units 22:44 22:44 22:44 WBC (4.0-10.5) K/mm3 RBC (4.1-5.4) M/mm3 Hgb (12.0-16.0) gm/dl Hct (35-47) % MCV (78-100) fl MCH (26-32) pg MCHC (32-36) g/dl RDW (11.5-14.0) % Plt Count (150-450) K/mm3 MPV (7.5-11.0) fl Gran % (36.0-66.0) % Eos # (Auto) (0-0.5) Absolute Lymphs (auto) (1.0-4.6) Absolute Monos (auto) (0.0-1.3) Lymphocytes % (24.0-44.0) % Monocytes % (0.0-12.0) % Eosinophils % (0.00-5.0) % Basophils % (0.0-0.4) % Absolute Granulocytes (1.4-6.9) Basophils # (0-0.4) Sodium (137-145) mmol/L Potassium (3.5-5.1) mmol/L Chloride (98-107) mmol/L Carbon Dioxide (22-30) mmol/L Anion Gap (5-15) MEQ/L BUN (7-17) mg/dL Creatinine (0.52-1.04) mg/dL Estimated GFR ML/MIN Glucose (74-106) mg/dL Calcium (8.4-10.2) mg/dL Total Bilirubin (0.2-1.3) mg/dL AST (14-36) U/L ALT (0-35) U/L Alkaline Phosphatase (38-126) U/L Serum Total Protein (6.3-8.2) g/dL Albumin (3.5-5.0) g/dL Urine Color (YELLOW) Urine Appearance (CLEAR) Urine pH (5-6) Ur Specific [place] (1.005-1.025) Urine Protein (Negative) Urine Ketones (NEGATIVE) Urine Blood (0-5) Jose Luis/ul Urine Nitrite (NEGATIVE) Urine Bilirubin (NEGATIVE) Urine Urobilinogen (0-1) mg/dL Ur Leukocyte Esterase (NEGATIVE) Urine WBC (Auto) (0-5) /HPF Urine RBC (Auto) (0-2) /HPF U Epithel Cells (Auto) (FEW) /HPF Urine Bacteria (Auto) (NEGATIVE) /HPF Amorphous Crystals (NEGATIVE) /HPF Urine Mucus (Auto) (NEGATIVE) /HPF Urine Culture Reflexed (NO) Urine Glucose (NEGATIVE) mg/dL Urine HCG, Qual (Negative) Urine Opiates Level (NEGATIVE) Ur Methadone (NEGATIVE) Urine Barbiturates (NEGATIVE) Ur Phencyclidine (PCP) (NEGATIVE) Urine Amphetamine (NEGATIVE) U Benzodiazepine Level (NEGATIVE) Urine Cocaine (NEGATIVE) Urine Marijuana (THC) (NEGATIVE) Ethyl Alcohol (0-10) mg/dL Monoscreen (Negative) Influenza Type A Ag NEGATIVE (NEGATIVE) Influenza Type B Ag NEGATIVE (NEGATIVE) SARS-CoV-2 Ag (Rapid) NEGATIVE (NEGATIVE) Group A Strep Antibody NOT DETECTED (NEGATIVE) 01/02/22 01/02/22 01/02/22 Range/Units 22:32 22:32 22:32 WBC 7.7 (4.0-10.5) K/mm3 RBC 5.05 (4.1-5.4) M/mm3 Hgb 14.4 (12.0-16.0) gm/dl Hct 43.2 (35-47) % MCV 85.5 (78-100) fl MCH 28.5 (26-32) pg MCHC 33.3 (32-36) g/dl RDW 13.3 (11.5-14.0) % Plt Count 250 (150-450) K/mm3 MPV 10.1 (7.5-11.0) fl Gran % 53.8 (36.0-66.0) % Eos # (Auto) 0.14 (0-0.5) Absolute Lymphs (auto) 2.92 (1.0-4.6) Absolute Monos (auto) 0.51 (0.0-1.3) Lymphocytes % 37.7 (24.0-44.0) % Monocytes % 6.6 (0.0-12.0) % Eosinophils % 1.8 (0.00-5.0) % Basophils % 0.1 (0.0-0.4) % Absolute Granulocytes 4.16 (1.4-6.9) Basophils # 0.01 (0-0.4) Sodium 140 (137-145) mmol/L Potassium 3.9 (3.5-5.1) mmol/L Chloride 101 (98-107) mmol/L Carbon Dioxide 23 (22-30) mmol/L Anion Gap 19.5 H (5-15) MEQ/L BUN 13 (7-17) mg/dL Creatinine 0.64 (0.52-1.04) mg/dL Estimated GFR > 60.0 ML/MIN Glucose 95 (74-106) mg/dL Calcium 9.9 (8.4-10.2) mg/dL Total Bilirubin 0.60 (0.2-1.3) mg/dL AST 32 (14-36) U/L ALT 34 (0-35) U/L Alkaline Phosphatase 101 (38-126) U/L Serum Total Protein 9.0 H (6.3-8.2) g/dL Albumin 5.3 H (3.5-5.0) g/dL Urine Color (YELLOW) Urine Appearance (CLEAR) Urine pH (5-6) Ur Specific [place] (1.005-1.025) Urine Protein (Negative) Urine Ketones (NEGATIVE) Urine Blood (0-5) Jose Luis/ul Urine Nitrite (NEGATIVE) Urine Bilirubin (NEGATIVE) Urine Urobilinogen (0-1) mg/dL Ur Leukocyte Esterase (NEGATIVE) Urine WBC (Auto) (0-5) /HPF Urine RBC (Auto) (0-2) /HPF U Epithel Cells (Auto) (FEW) /HPF Urine Bacteria (Auto) (NEGATIVE) /HPF Amorphous Crystals (NEGATIVE) /HPF Urine Mucus (Auto) (NEGATIVE) /HPF Urine Culture Reflexed (NO) Urine Glucose (NEGATIVE) mg/dL Urine HCG, Qual (Negative) Urine Opiates Level (NEGATIVE) Ur Methadone (NEGATIVE) Urine Barbiturates (NEGATIVE) Ur Phencyclidine (PCP) (NEGATIVE) Urine Amphetamine (NEGATIVE) U Benzodiazepine Level (NEGATIVE) Urine Cocaine (NEGATIVE) Urine Marijuana (THC) (NEGATIVE) Ethyl Alcohol < 10 (0-10) mg/dL Monoscreen NEGATIVE (Negative) Influenza Type A Ag (NEGATIVE) Influenza Type B Ag (NEGATIVE) SARS-CoV-2 Ag (Rapid) (NEGATIVE) Group A Strep Antibody (NEGATIVE) 02/19/22 02/19/22 02/19/22 Range/Units 22:31 22:31 22:31 WBC (4.0-10.5) K/mm3 RBC (4.1-5.4) M/mm3 Hgb (12.0-16.0) gm/dl Hct (35-47) % MCV (78-100) fl MCH (26-32) pg MCHC (32-36) g/dl RDW (11.5-14.0) % Plt Count (150-450) K/mm3 MPV (7.5-11.0) fl Gran % (36.0-66.0) % Eos # (Auto) (0-0.5) Absolute Lymphs (auto) (1.0-4.6) Absolute Monos (auto) (0.0-1.3) Lymphocytes % (24.0-44.0) % Monocytes % (0.0-12.0) % Eosinophils % (0.00-5.0) % Basophils % (0.0-0.4) % Absolute Granulocytes (1.4-6.9) Basophils # (0-0.4) Sodium (137-145) mmol/L Potassium (3.5-5.1) mmol/L Chloride (98-107) mmol/L Carbon Dioxide (22-30) mmol/L Anion Gap (5-15) MEQ/L BUN (7-17) mg/dL Creatinine (0.52-1.04) mg/dL Estimated GFR ML/MIN Glucose (74-106) mg/dL Calcium (8.4-10.2) mg/dL Total Bilirubin (0.2-1.3) mg/dL AST (14-36) U/L ALT (0-35) U/L Alkaline Phosphatase (38-126) U/L Serum Total Protein (6.3-8.2) g/dL Albumin (3.5-5.0) g/dL Urine Color YELLOW (YELLOW) Urine Appearance SLIGHTLY CLOUDY (CLEAR) Urine pH 6.0 (5-6) Ur Specific [place] 1.027 (1.005-1.025) Urine Protein NEGATIVE (Negative) Urine Ketones NEGATIVE (NEGATIVE) Urine Blood NEGATIVE (0-5) Jose Luis/ul Urine Nitrite NEGATIVE (NEGATIVE) Urine Bilirubin NEGATIVE (NEGATIVE) Urine Urobilinogen NEGATIVE (0-1) mg/dL Ur Leukocyte Esterase NEGATIVE (NEGATIVE) Urine WBC (Auto) 3-5 (0-5) /HPF Urine RBC (Auto) 0-2 (0-2) /HPF U Epithel Cells (Auto) FEW (FEW) /HPF Urine Bacteria (Auto) NONE SEEN (NEGATIVE) /HPF Amorphous Crystals FEW (NEGATIVE) /HPF Urine Mucus (Auto) SLIGHT (NEGATIVE) /HPF Urine Culture Reflexed NO (NO) Urine Glucose NEGATIVE (NEGATIVE) mg/dL Urine HCG, Qual NEGATIVE (Negative) Urine Opiates Level NEGATIVE (NEGATIVE) Ur Methadone NEGATIVE (NEGATIVE) Urine Barbiturates NEGATIVE (NEGATIVE) Ur Phencyclidine (PCP) NEGATIVE (NEGATIVE) Urine Amphetamine NEGATIVE (NEGATIVE) U Benzodiazepine Level NEGATIVE (NEGATIVE) Urine Cocaine NEGATIVE (NEGATIVE) Urine Marijuana (THC) NEGATIVE (NEGATIVE) Ethyl Alcohol (0-10) mg/dL Monoscreen (Negative) Influenza Type A Ag (NEGATIVE) Influenza Type B Ag (NEGATIVE) SARS-CoV-2 Ag (Rapid) (NEGATIVE) Group A Strep Antibody (NEGATIVE) - Progress Progress: improved Progress Note: 01/02/22 23:47 CAT scan of head shows no acute intracranial abnormality. Counseled pt/family regarding: lab results, diagnosis, need for follow-up, rad results - Departure Departure Disposition: Home Clinical Impression: Syncope Condition: Stable Critical Care Time: No Referrals: DAQUAN DENNIS [Primary Care Provider] - Follow up/PCP as directed Additional Instructions: Drink plenty of fluids. Take your medication as prescribed follow-up with your primary care physician for further management.
[2022-01-02] MEDS ORDERED: Zofran 4 MG/2 ML VIAL IV STA (22:28)
[2022-01-02 22:36] LABS: Absolute Neutrophil Ct (ANC) 4.16 (1.4-6.9); Basophil (Absolute #) 0.01 (0-0.4); Eosinophil % 1.8 % (0.00-5.0); Eosinophil (Absolute #) 0.14 (0-0.5); Hematocrit 43.2 % (35-47); Hemoglobin 14.4 gm/dl (12.0-16.0); Lymphocyte (Absolute #) 2.92 (1.0-4.6); Lymphocytes % 37.7 % (24.0-44.0); Mean Cell Volume 85.5 fl (78-100); Mean Corpuscular Hemoglobin 28.5 pg (26-32); Mean Corpuscular Hgb Concent. 33.3 g/dl (32-36); Mean Platelet Volume 10.1 fl (7.5-11.0); Monocyte (Absolute #) 0.51 (0.0-1.3); Monocytes % 6.6 % (0.0-12.0); Neutrophil % 53.8 % (36.0-66.0); Platelet Count 250 K/mm3 (150-450); Red Blood Count 5.05 M/mm3 (4.1-5.4); Red Cell Distribution Width 13.3 % (11.5-14.0); White Blood Count 7.7 K/mm3 (4.0-10.5)
[2022-01-02] MEDS ORDERED: Zofran 4 MG/2 ML VIAL ONE (22:37)
[2022-01-02] MEDS ORDERED: Sodium Chloride 0.9% 1000 ML 1,000 ML ONE (22:37)
[2022-01-02 22:42] LABS: ALBUMIN 5.3 g/dL (3.5-5.0); ALKALINE PHOSPHATASE 101 U/L (38-126); ANION GAP 19.5 MEQ/L (5-15); BLOOD UREA NITROGEN 13 mg/dL (7-17); CHLORIDE 101 mmol/L (98-107); Calcium 9.9 mg/dL (8.4-10.2); Carbon Dioxide 23 mmol/L (22-30); Creatinine 1 0.64 mg/dL (0.52-1.04); EST GLOMERULAR FILTRATION RATE > 60.0 ML/MIN; ETHYL ALCOHOL < 10 mg/dL (0-10); Glucose 95 mg/dL (74-106); Potassium 3.9 mmol/L (3.5-5.1); SGOT/AST 32 U/L (14-36); SGPT/ALT 34 U/L (0-35); SODIUM 140 mmol/L (137-145)
[2022-01-02 22:46] LABS: Amourphous Crystal FEW /HPF (NEGATIVE); Appearance SLIGHTLY CLOUDY (CLEAR); Bilirubin NEGATIVE (NEGATIVE); Blood NEGATIVE Ery/ul (0-5); Epithelial Cells FEW /HPF (FEW); Glucose NEGATIVE (NEGATIVE); Ketones NEGATIVE (NEGATIVE); Leukocyte Esterase NEGATIVE (NEGATIVE); Mucus SLIGHT /HPF (NEGATIVE); Nitrite NEGATIVE (NEGATIVE); Protein,Urine Dip NEGATIVE (Negative); RBC 0-2 /HPF (0-2); Specific Gravity 1.027 (1.005-1.025); Urobilinogen NEGATIVE mg/dL (0-1)
[2022-01-02 22:54] VITALS: O2SAT 100
[2022-01-02 22:54] LABS: Barbiturate,Urine NEGATIVE (NEGATIVE); Benzodiazepine,Urine NEGATIVE (NEGATIVE); Cocaine,Urine NEGATIVE (NEGATIVE); Methadone,Urine NEGATIVE (NEGATIVE); Opiate,Urine NEGATIVE (NEGATIVE); PCP,Urine NEGATIVE (NEGATIVE); THC,Urine NEGATIVE (NEGATIVE)
[2022-01-02 22:56] LABS: Amphetamine,Urine NEGATIVE (NEGATIVE)
[2022-01-02 22:58] LABS: Bacteria NONE SEEN /HPF (NEGATIVE)
[2022-01-02 23:13] LABS: COVID AG -BINAX NOW RAPID TEST NEGATIVE (NEGATIVE); INFLUENZA A NEGATIVE (NEGATIVE); INFLUENZA B NEGATIVE (NEGATIVE)
[2022-01-02 23:53] VITALS: BP 106/69; PULSE 77
--- NOTE | 2022-01-03 08:40 | XRAY ---
Indication: Syncope. Multiple contiguous axial images obtained through the head without contrast. Comparison: September 10, 2021 Normal appearing brain parenchyma, ventricles, and bony calvarium. New moderate mucosal thickening of the visualized paranasal sinuses bilaterally. Mastoid air cells are clear. Impression: 1. New pansinusitis. 2. Remaining CT head without contrast exam is again negative. Comment: Preliminary interpretation made by [facility]. No critical discrepancy.
== END 2022-01-02 23:57 | disposition home or self-care (01) ==
LOC: ED 22:07
DX: R55 Syncope and collapse (principal); R11.0 Nausea; R53.1 Weakness; K21.9 Gastro-esophageal reflux disease without esophagitis; F41.9 Anxiety disorder, unspecified; Z79.899 Other long term (current) drug therapy
CPT/HCPCS: 36000; 36415; 70450; 80053; 80307; 81001; 84703; 85025; 86308; 87400; 87651; 93005; 94760; 96374; 99000; 99284; G0480; J2405

== ENCOUNTER 2022-06-09 13:43 | Emergency (ER) | payer OTHER ==
[2022-06-09 14:05] VITALS: O2SAT 99
[2022-06-09] MEDS ORDERED: Sodium Chloride 0.9% 1000 ML 1,000 ML ONE (14:23)
--- NOTE | 2022-06-09 14:26 | ERPHSYRPT ---
- History of Present Illness Historian: patient Exam Limitations: no limitations Patient Subjective Stated Complaint: C/O N/V, diarrhea, abdominal pain for the past 4 days Triage Nursing Assessment: Ambulated back to ED. Alert and oriented. No SOB. Abdomen soft, flat, tender in upper quads. Physician History: 22 yo WF w N/V/D/epigastric pain x 4 days. Pain is 6/10 and described as an ache. Nothing makes it better or worse, and she has had similar pain since her cholecystectomy. Melena/hematochezia/fever/dysuria/hematuria/fever/cough/coryza/ all denied. Timing/Duration: other (4 days) Quality: aching Abdominal Pain Onset Location: epigastric Pain Radiation: no radiation Severity of Pain-Max: moderate Severity of Pain-Current: moderate Modifying Factors: Improves With: nothing Associated Symptoms: diarrhea, loss of appetite, nausea, vomiting, weakness, No back, No chest pain, No diaphoresis, No fever/chills, No fatigue, No headache, No heartburn, No neck pain, No rash, No shortness of breath, No syncope Previous symptoms: same symptoms as today Allergies/Adverse Reactions: No Known Drug Allergies Allergy (Verified 06/09/22 13:51) Home Medications: Meclizine HCl 12.5 mg PO BID PRN 09/19/21 [History] Omeprazole 20 mg PO DAILY 09/19/21 [History] Sertraline HCl 50 mg [Zoloft 50 mg Tablet] 50 mg PO BID 09/19/21 [History] Topiramate 25 mg PO DAILY 09/19/21 [History] hydrOXYzine HCL [Hydroxyzine HCl] 10 mg PO TID 09/19/21 [History] Hx Tetanus, Diphtheria Vaccination/Date Given: Yes Hx Influenza Vaccination/Date Given: No Hx Pneumococcal Vaccination/Date Given: No Immunizations Up to Date: Yes Travel Risk - International Travel Have you traveled outside of the country in past 3 weeks: No - Coronavirus Screening Are you exhibiting any of the following symptoms?: Yes Symptoms: Fever, Vomiting/Diarrhea Close contact with a COVID-19 positive Pt in past 14-21 Days: No - Vaccine Status Have you recieved a Covid-19 vaccination: No - Review of Systems Constitutional: No Symptoms Eyes: No Symptoms Ears, Nose, & Throat: No Symptoms Respiratory: No Symptoms Cardiac: No Symptoms Abdominal/Gastrointestinal: No Symptoms, Abdominal Pain, Nausea, Vomiting, Diarrhea Genitourinary Symptoms: No Symptoms Musculoskeletal: No Symptoms Skin: No Symptoms Neurological: No Symptoms Psychological: No Symptoms Endocrine: No Symptoms Hematologic/Lymphatic: No Symptoms Immunological/Allergic: No Symptoms - Past Medical History Pertinent Past Medical History: Yes Neurological History: Migraines, Other ENT History: No Pertinent History Cardiac History: No Pertinent History Respiratory History: No Pertinent History Endocrine Medical History: No Pertinent History Musculoskeletal History: No Pertinent History GI Medical History: GERD, Gallbladder Disease History: No Pertinent History Psycho-Social History: Anxiety, Depression Female Reproductive Disorders: No Pertinent History Other Medical History: recent n/v, diarrhea, stomach bloating - Past Surgical History Past Surgical History: Yes Neuro Surgical History: No Pertinent History Cardiac: No Pertinent History Respiratory: No Pertinent History Gastrointestinal: Cholecystectomy Genitourinary: No Pertinent History Musculoskeletal: No Pertinent History Female Surgical History: No Pertinent History Other Surgical History: EGD - Social History Smoking Status: Never smoker Exposure to second hand smoke: No Drug Use: none Patient Lives Alone: No Significant Family History: no pertinent family hx - Female History Hx Last Menstrual Period: Beginning of this month Hx Now: (Unsure) - Nursing Vital Signs Nursing Vital Signs: Initial Vital Signs Temperature 97.6 F 06/09/22 13:53 Pulse Rate 107 H 06/09/22 13:53 Respiratory Rate 20 06/09/22 13:53 Blood Pressure 132/98 06/09/22 13:53 O2 Sat by Pulse Oximetry 99 06/09/22 13:53 Pain Scale Pain Intensity 3 Tachy - Physical Exam General Appearance: no apparent distress Eye Exam: PERRL/EOMI, eyes nml inspection Ears, Nose, Throat Exam: normal ENT inspection, TMs normal, pharynx normal, moist mucous membranes Neck Exam: normal inspection, non-tender, supple, full range of motion, No meningismus, No mass, No Brudzinski, No Kernig's Respiratory Exam: normal breath sounds, lungs clear, airway intact Cardiovascular Exam: normal heart sounds, tachycardia, capillary refill <2 sec, No murmur Gastrointestinal/Abdomen Exam: soft, tenderness (Mild epigastric TTP wo guarding or rebound) Back Exam: normal inspection, normal range of motion, No CVA tenderness, No v ertebral tenderness Extremity Exam: normal inspection, normal range of motion Neurologic Exam: alert, oriented x 3, 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, 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, normal mood/affect, nml cerebellar function, nml station & gait, sensation nml Skin Exam: normal color, warm, dry, No rash Lymphatic Exam: No adenopathy SpO2 Interpretation: normal SpO2: 99 O2 Delivery: Room Air - Course Nursing assessment & vital signs reviewed: Yes - CT Exams Abdomen/Pelvis CT Interpretation: Discussed w/radiologist (R ovarian cyst, otherwise negative) Ordered Tests: Active Orders 24 hr Category Date Time Status ABDOMEN AND PELVIS W/0 CONTRAS [CT] Stat Exams 06/09/22 15:17 Completed AMYLASE Stat Lab 06/09/22 14:22 Completed CBC W DIFF Stat Lab 06/09/22 14:20 Completed CMP Stat Lab 06/09/22 14:22 Completed CULTURE,URINE Stat Lab 06/09/22 14:22 Received HCG QUALITATIVE,SERUM Stat Lab 06/09/22 14:22 Completed LIPASE Stat Lab 06/09/22 14:22 Completed UA W/RFX CULTURE Stat Lab 06/09/22 14:22 Completed Medication Summary Discontinued Medications Generic Name Dose Route Start Last Admin Trade Name Freq PRN Reason Stop Dose Admin Sodium Chloride 1,000 mls @ 999 mls/hr 06/09/22 14:20 06/09/22 15:32 Sodium Chloride 0.9% 1000 Ml IV 06/09/22 15:20 Infused .Q1H1M STA Infusion Sodium Chloride Confirm 06/09/22 14:23 Sodium Chloride 0.9% 1000 Ml Administered 06/09/22 14:24 Dose 1,000 mls @ ud .ROUTE .STK-MED ONE Ketorolac Tromethamine 15 mg 06/09/22 15:17 06/09/22 15:27 Ketorolac Tromethamine 30 Mg/Ml Inj IV 06/09/22 15:18 15 mg STAT ONE Administration Ketorolac Tromethamine Confirm 06/09/22 15:26 Ketorolac Tromethamine 30 Mg/Ml Inj Administered 06/09/22 15:27 Dose 30 mg .ROUTE .STK-MED ONE Ondansetron HCl 4 mg 06/09/22 15:15 06/09/22 15:26 Ondansetron Hcl 4 Mg/2 Ml Vial IV 06/09/22 15:16 4 mg STAT ONE Administration Ondansetron HCl Confirm 06/09/22 15:26 Ondansetron Hcl 4 Mg/2 Ml Vial Administered 06/09/22 15:27 Dose 4 mg .ROUTE .STK-MED ONE Lab/Rad Data: Laboratory Result Diagrams 06/09/22 14:20 06/09/22 14:22 Laboratory Results 06/09/22 06/09/22 06/09/22 Range/Units 15:35 14:22 14:22 WBC (4.0-10.5) x10^3/uL RBC (4.1-5.4) x10^6/uL Hgb (12.0-16.0) g/dL Hct (35-47) % MCV (78-100) fL MCH (26-32) pg MCHC (32-36) g/dL RDW (11.5-14.0) % Plt Count (150-450) x10^3/uL MPV (7.5-11.0) fL Gran % (36.0-66.0) % Immature Gran % (Auto) (0.00-0.4) % Nucleat RBC Rel Count (0.00-0.1) % Eos # (Auto) (0-0.5) x10^3/uL Immature Gran # (Auto) (0.00-0.03) x10^3u/L Absolute Lymphs (auto) (1.0-4.6) x10^3/uL Absolute Monos (auto) (0.0-1.3) x10^3/uL Absolute Nucleated RBC (0.00-0.01) x10^3u/L Lymphocytes % (24.0-44.0) % Monocytes % (0.0-12.0) % Eosinophils % (0.00-5.0) % Basophils % (0.0-0.4) % Absolute Granulocytes (1.4-6.9) x10^3/uL Basophils # (0-0.4) x10^3/uL Sodium (137-145) mmol/L Potassium (3.5-5.1) mmol/L Chloride (98-107) mmol/L Carbon Dioxide (22-30) mmol/L Anion Gap (5-15) MEQ/L BUN (7-17) mg/dL Creatinine (0.52-1.04) mg/dL Estimated GFR ML/MIN Glucose (74-106) mg/dL Calcium (8.4-10.2) mg/dL Total Bilirubin (0.2-1.3) mg/dL AST (14-36) U/L ALT (0-35) U/L Alkaline Phosphatase (38-126) U/L Serum Total Protein (6.3-8.2) g/dL Albumin (3.5-5.0) g/dL Amylase (30-110) U/L Lipase (23-300) U/L Serum , Qual NEGATIVE (Negative) Urinalys Dipstick Clnc MAIN LAB Urine Color YELLOW (YELLOW) Urine Appearance SLIGHTLY CLOUDY (CLEAR) Urine pH 6.0 (5-6) Ur Specific Brilliant >=1.030 (1.005-1.025) POC Urine Protein Conf 30 (Negative) Urine Ketones >=160 (NEGATIVE) Urine Nitrite NEGATIVE (NEGATIVE) Urine Bilirubin SMALL (NEGATIVE) Urine Urobilinogen 0.2 (0-1) mg/dL Urine Leukocytes NEGATIVE (NEGATIVE) Urine WBC (Auto) 3-5 (0-5) /HPF Urine RBC (Auto) 0-2 (0-2) /HPF U Epithel Cells (Auto) PACKED (FEW) /HPF Urine Bacteria (Auto) RARE (NEGATIVE) /HPF Urine RBC TRACE-INTACT (0-5) Jose Luis/ul Urine Mucus (Auto) SLIGHT (NEGATIVE) /HPF Ur Culture Indicated? YES Urine Glucose NEGATIVE (NEGATIVE) mg/dL Influenza Type A Ag NEGATIVE (NEGATIVE) Influenza Type B Ag NEGATIVE (NEGATIVE) RSV (PCR) NEGATIVE (Negative) SARS-CoV-2 (PCR) NEGATIVE (NEGATIVE) 06/09/22 06/09/22 Range/Units 14:22 14:20 WBC 9.0 (4.0-10.5) x10^3/uL RBC 4.64 (4.1-5.4) x10^6/uL Hgb 13.4 (12.0-16.0) g/dL Hct 40.2 (35-47) % MCV 86.6 (78-100) fL MCH 28.9 (26-32) pg MCHC 33.3 (32-36) g/dL RDW 12.7 (11.5-14.0) % Plt Count 239 (150-450) x10^3/uL MPV 10.3 (7.5-11.0) fL Gran % 82.3 H (36.0-66.0) % Immature Gran % (Auto) 0.2 (0.00-0.4) % Nucleat RBC Rel Count 0.0 (0.00-0.1) % Eos # (Auto) 0.07 (0-0.5) x10^3/uL Immature Gran # (Auto) 0.02 (0.00-0.03) x10^3u/L Absolute Lymphs (auto) 1.02 (1.0-4.6) x10^3/uL Absolute Monos (auto) 0.47 (0.0-1.3) x10^3/uL Absolute Nucleated RBC 0.00 (0.00-0.01) x10^3u/L Lymphocytes % 11.3 L (24.0-44.0) % Monocytes % 5.2 (0.0-12.0) % Eosinophils % 0.8 (0.00-5.0) % Basophils % 0.2 (0.0-0.4) % Absolute Granulocytes 7.44 H (1.4-6.9) x10^3/uL Basophils # 0.02 (0-0.4) x10^3/uL Sodium 136 L (137-145) mmol/L Potassium 3.5 (3.5-5.1) mmol/L Chloride 100 (98-107) mmol/L Carbon Dioxide 21 L (22-30) mmol/L Anion Gap 19.1 H (5-15) MEQ/L BUN 10 (7-17) mg/dL Creatinine 0.65 (0.52-1.04) mg/dL Estimated GFR > 60.0 ML/MIN Glucose 84 (74-106) mg/dL Calcium 9.6 (8.4-10.2) mg/dL Total Bilirubin 1.30 (0.2-1.3) mg/dL AST 42 H (14-36) U/L ALT 43 H (0-35) U/L Alkaline Phosphatase 90 (38-126) U/L Serum Total Protein 8.3 H (6.3-8.2) g/dL Albumin 4.9 (3.5-5.0) g/dL Amylase 76 (30-110) U/L Lipase 116 (23-300) U/L Serum , Qual (Negative) Urinalys Dipstick Clnc Urine Color (YELLOW) Urine Appearance (CLEAR) Urine pH (5-6) Ur Specific Brilliant (1.005-1.025) POC Urine Protein Conf (Negative) Urine Ketones (NEGATIVE) Urine Nitrite (NEGATIVE) Urine Bilirubin (NEGATIVE) Urine Urobilinogen (0-1) mg/dL Urine Leukocytes (NEGATIVE) Urine WBC (Auto) (0-5) /HPF Urine RBC (Auto) (0-2) /HPF U Epithel Cells (Auto) (FEW) /HPF Urine Bacteria (Auto) (NEGATIVE) /HPF Urine RBC (0-5) Jose Luis/ul Urine Mucus (Auto) (NEGATIVE) /HPF Ur Culture Indicated? Urine Glucose (NEGATIVE) mg/dL Influenza Type A Ag (NEGATIVE) Influenza Type B Ag (NEGATIVE) RSV (PCR) (Negative) SARS-CoV-2 (PCR) (NEGATIVE) - Progress Progress: improved Progress Note: 06/09/22 17:06 1L NS bolus/4mg IV Zofran/15mg IV Toradol w improvement 06/09/22 17:06 Counseled pt/family regarding: lab results, diagnosis, need for follow-up, rad results - Departure Departure Disposition: Home Clinical Impression: Nausea & vomiting, Diarrhea, Ovarian cyst Condition: Stable Critical Care Time: No Referrals: DAQUAN HARTLEY [Primary Care Provider] - Follow up/PCP as directed Instructions: Severe Abdominal Pain, Adult (DC), Nausea and Vomiting, Adult (DC) Additional Instructions: Fluids Rest Zofran for nausea/vomiting Return to ER for increasing abdominal pain or inability to hold down fluids Prescriptions: Ondansetron ODT 4 MG [Zofran Odt 4 mg] 4 mg PO Q6H PRN PRN #10 tablet PRN Reason: Nausea
[2022-06-09] MEDS: Sodium Chloride 0.9% 1000 ML 1,000 ML IV STA (14:28)
[2022-06-09 14:35] LABS: Absolute Neutrophil Ct (ANC) 7.44 x10^3/uL (1.4-6.9); Basophil (Absolute #) 0.02 x10^3/uL (0-0.4); Eosinophil % 0.8 % (0.00-5.0); Eosinophil (Absolute #) 0.07 x10^3/uL (0-0.5); Hematocrit 40.2 % (35-47); Hemoglobin 13.4 g/dL (12.0-16.0); Lymphocyte (Absolute #) 1.02 x10^3/uL (1.0-4.6); Lymphocytes % 11.3 % (24.0-44.0); Mean Cell Volume 86.6 fL (78-100); Mean Corpuscular Hemoglobin 28.9 pg (26-32); Mean Corpuscular Hgb Concent. 33.3 g/dL (32-36); Mean Platelet Volume 10.3 fL (7.5-11.0); Monocyte (Absolute #) 0.47 x10^3/uL (0.0-1.3); Monocytes % 5.2 % (0.0-12.0); Neutrophil % 82.3 % (36.0-66.0); Platelet Count 239 x10^3/uL (150-450); Red Blood Count 4.64 x10^6/uL (4.1-5.4); Red Cell Distribution Width 12.7 % (11.5-14.0)
[2022-06-09 14:37] LABS: Appearance SLIGHTLY CLOUDY (CLEAR); Bilirubin SMALL (NEGATIVE); Glucose NEGATIVE (NEGATIVE); Ketones >=160 (NEGATIVE); Protein,Urine Dip 30 (Negative); RBC TRACE-INTACT Ery/ul (0-5); Specific Gravity >=1.030 (1.005-1.025); Urobilinogen 0.2 mg/dL (0-1)
[2022-06-09 14:38] LABS: Dipstick done @ ? MAIN LAB; Nitrite NEGATIVE (NEGATIVE)
[2022-06-09 14:39] LABS: Bacteria RARE /HPF (NEGATIVE); Epithelial Cells PACKED /HPF (FEW); Mucus SLIGHT /HPF (NEGATIVE); RBC 0-2 /HPF (0-2); Urine Cultured Indicated? YES
[2022-06-09 14:48] LABS: ALBUMIN 4.9 g/dL (3.5-5.0); ALKALINE PHOSPHATASE 90 U/L (38-126); AMYLASE 76 U/L (30-110); ANION GAP 19.1 MEQ/L (5-15); BLOOD UREA NITROGEN 10 mg/dL (7-17); CHLORIDE 100 mmol/L (98-107); Calcium 9.6 mg/dL (8.4-10.2); Carbon Dioxide 21 mmol/L (22-30); Creatinine 1 0.65 mg/dL (0.52-1.04); EST GLOMERULAR FILTRATION RATE > 60.0 ML/MIN; Glucose 84 mg/dL (74-106); LIPASE 116 U/L (23-300); Potassium 3.5 mmol/L (3.5-5.1); SGOT/AST 42 U/L (14-36); SGPT/ALT 43 U/L (0-35); SODIUM 136 mmol/L (137-145); Total Protein 8.3 g/dL (6.3-8.2)
[2022-06-09] MEDS: Zofran 4 MG/2 ML VIAL IV ONE (15:26)
[2022-06-09] MEDS ORDERED: TORAdol 30 mg Injection ONE (15:26)
[2022-06-09] MEDS ORDERED: Zofran 4 MG/2 ML VIAL ONE (15:26)
[2022-06-09] MEDS: TORAdol 30 mg Injection IV ONE (15:27)
[2022-06-09 16:11] LABS: INFLUENZA A NEGATIVE (NEGATIVE); INFLUENZA B NEGATIVE (NEGATIVE); RESPIRATORY SYNCTIAL VIRUS NEGATIVE (Negative); SARS-CoV-2 Xpert Express NEGATIVE (NEGATIVE)
--- NOTE | 2022-06-09 16:14 | XRAY ---
Indication: Epigastric pain 4 days. Nausea, vomiting, diarrhea. Multiple contiguous axial images obtained through the abdomen and pelvis without contrast. Comparison: October 29, 2018 Lung bases clear. Heart not enlarged. Noncontrasted stomach and bowel loops nonobstructed with normal appendix. Interval cholecystectomy. New 2.6 cm right ovary cyst. No free fluid/air. Remaining liver, pancreas, spleen, adrenal glands, kidneys, ureters, bladder, uterus, and aorta are unremarkable for noncontrast exam. Osseous structures intact. Impression: New 2.6 cm right ovary cyst. Remaining CT abdomen/pelvis without contrast exam is again negative.
[2022-06-09 17:23] VITALS: BP 124/77; PULSE 84
== END 2022-06-09 17:15 | disposition home or self-care (01) ==
LOC: ED 13:43
DX: R11.2 Nausea with vomiting, unspecified (principal); R19.7 Diarrhea, unspecified; N83.201 Unspecified ovarian cyst, right side; R10.13 Epigastric pain; Z79.899 Other long term (current) drug therapy; Z28.310 Unvaccinated for COVID-19
CPT/HCPCS: 0241U; 36000; 36415; 74176; 80053; 81015; 82150; 83690; 84703; 85025; 87086; 96374; 96375; 99284; J1885; J2405

== ENCOUNTER 2022-12-06 21:48 | Emergency (ER) | payer OTHER ==
--- NOTE | 2022-12-06 21:51 | ERPHSYRPT ---
- History of Present Illness Time Seen by Provider: 12/06/22 21:51 Source: patient, EMS Exam Limitations: no limitations Physician History: This is a 22-year-old white female patient of Dr. Dennis who was pulling a very heavy item at work when the heavy equipment began rolling backwards towards the patient out of control. Patient states that she was trying to brace herself to hold back this heavy item that was rolling backwards and felt a pulling sensation lower back then a pop. Ever since that pop she has noticed increasing pain. She has to walk leaning forward because of pain. Patient has a history of migraine headaches. Gastroesophageal reflux disease, and anxiety. She has no chest pain. She has no abdominal pain. She has no shortness of breath. Timing/Duration: today Method of Injury: other (Bracing herself to hold back a backward rolling heavy item at work) Back Pain Location: lumbar spine, paraspinous muscles Back Pain Radiation: buttocks Severity of Pain-Max: moderate (Bilateral) Severity of Pain-Current: moderate Modifying Factors: Improves With: movement Associated Symptoms: lower back pain, muscle spasms, No urinary incontinence, No problems urinating, No numbness in legs/feet Previous symptoms: no prior history Allergies/Adverse Reactions: No Known Drug Allergies Allergy (Verified 12/06/22 21:50) Home Medications: Meclizine HCl 12.5 mg PO BID PRN 09/19/21 [History] Omeprazole 20 mg PO DAILY 09/19/21 [History] Sertraline HCl 50 mg [Zoloft 50 mg Tablet] 50 mg PO BID 09/19/21 [History] Topiramate 25 mg PO DAILY 09/19/21 [History] hydrOXYzine HCL [Hydroxyzine HCl] 10 mg PO TID 09/19/21 [History] Hx Tetanus, Diphtheria Vaccination/Date Given: Yes Hx Influenza Vaccination/Date Given: No Hx Pneumococcal Vaccination/Date Given: No Travel Risk - International Travel Have you traveled outside of the country in past 3 weeks: No - Coronavirus Screening Are you exhibiting any of the following symptoms?: No Close contact with a COVID-19 positive Pt in past 14-21 Days: No - Vaccine Status Have you recieved a Covid-19 vaccination: No - Review of Systems Constitutional: No Symptoms Eyes: No Symptoms Ears, Nose, & Throat: No Symptoms Respiratory: No Symptoms Cardiac: No Symptoms Abdominal/Gastrointestinal: No Symptoms Genitourinary Symptoms: No Symptoms Musculoskeletal: Back Pain Skin: No Symptoms Neurological: No Symptoms Psychological: No Symptoms Endocrine: No Symptoms Hematologic/Lymphatic: No Symptoms Immunological/Allergic: No Symptoms All Other Systems: Reviewed and Negative - Past Medical History Pertinent Past Medical History: Yes Neurological History: Migraines, Other ENT History: No Pertinent History Cardiac History: No Pertinent History Respiratory History: No Pertinent History Endocrine Medical History: No Pertinent History Musculoskeletal History: No Pertinent History GI Medical History: GERD, Gallbladder Disease History: No Pertinent History Psycho-Social History: Anxiety, Depression Female Reproductive Disorders: No Pertinent History Other Medical History: recent n/v, diarrhea, stomach bloating - Past Surgical History Past Surgical History: Yes Neuro Surgical History: No Pertinent History Cardiac: No Pertinent History Respiratory: No Pertinent History Gastrointestinal: Cholecystectomy Genitourinary: No Pertinent History Musculoskeletal: No Pertinent History Female Surgical History: No Pertinent History Other Surgical History: EGD - Social History Smoking Status: Never smoker Exposure to second hand smoke: No Drug Use: none Patient Lives Alone: No Significant Family History: no pertinent family hx - Nursing Vital Signs Nursing Vital Signs: Initial Vital Signs Temperature 97.4 F 12/06/22 21:51 Pulse Rate 83 12/06/22 21:51 Respiratory Rate 17 12/06/22 21:51 Blood Pressure 122/66 12/06/22 21:51 O2 Sat by Pulse Oximetry 98 12/06/22 21:51 Pain Scale Pain Intensity [Lower Back] 8 Pain Intensity 4 - Physical Exam General Appearance: mild distress (To moderate), alert, anxiety Eye Exam: PERRL/EOMI, eyes nml inspection Ears, Nose, Throat Exam: normal ENT inspection, moist mucous membranes Neck Exam: normal inspection, non-tender, supple, full range of motion Respiratory Exam: normal breath sounds, lungs clear, airway intact, No chest tenderness, No respiratory distress Cardiovascular Exam: regular rate/rhythm, normal heart sounds, normal peripheral pulses Gastrointestinal Exam: soft, normal bowel sounds, No tenderness Pelvic Exam: not done Rectal Exam: not done Back Exam: normal inspection, normal range of motion, muscle spasm (Lumbar level bilateral paraspinous muscle region), No CVA tenderness, No vertebral tenderness Extremity Exam: normal inspection, normal range of motion, pelvis stable Neurologic Exam: alert, oriented x 3, 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, 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, normal mood/affect, sensation nml Skin Exam: normal color, warm, dry Lymphatic Exam: No adenopathy SpO2 Interpretation: normal O2 Delivery: Room Air Ordered Tests: Active Orders 24 hr Category Date Time Status LUMBAR SPINE W/O [CT] Stat Exams 12/06/22 22:07 Taken HCG,QUALITATIVE URINE Stat Lab 12/06/22 22:27 Completed Medication Summary Discontinued Medications Generic Name Dose Route Start Last Admin Trade Name Angelique PRN Reason Stop Dose Admin Ketorolac Tromethamine 60 mg 12/06/22 22:06 12/06/22 22:18 Ketorolac Tromethamine 30 Mg/Ml Inj IM 12/06/22 22:07 60 mg STAT ONE Administration Ketorolac Tromethamine Confirm 12/06/22 22:17 Ketorolac Tromethamine 30 Mg/Ml Inj Administered 12/06/22 22:18 Dose 60 mg .ROUTE .STK-MED ONE Orphenadrine Citrate 60 mg 12/06/22 22:06 12/06/22 22:19 Orphenadrine Citrate 60 Mg/2 Ml Vial IM 12/06/22 22:07 60 mg STAT ONE Administration Orphenadrine Citrate Confirm 12/06/22 22:17 Orphenadrine Citrate 60 Mg/2 Ml Vial Administered 12/06/22 22:18 Dose 60 mg .ROUTE .STK-MED ONE Lab/Rad Data: Laboratory Results 12/06/22 Range/Units 22:27 Urine HCG, Qual NEGATIVE (Negative) - Progress Progress: improved, pain not gone completely Progress Note: 12/06/22 23:54 CT scan of the lumbar spine shows no acute fracture or subluxation Counseled pt/family regarding: lab results, diagnosis, need for follow-up, rad results - Departure Departure Disposition: Home Clinical Impression: Lower back pain Condition: Stable Critical Care Time: No Referrals: DAQUAN DENNIS [Primary Care Provider] - Follow up/PCP as directed Forms: Work/School Release Form Prescriptions: Prednisone 10 mg [Deltasone 10 mg] 10 mg PO TID #12 tablet Orphenadrine Citrate 100 mg [Norflex 100 MG Tablet] 100 mg PO BID #10 tab
[2022-12-06] MEDS ORDERED: TORAdol 30 mg Injection IM ONE (22:06)
[2022-12-06] MEDS ORDERED: Norflex 60 MG/2 ML IM ONE (22:06)
[2022-12-06] MEDS ORDERED: Norflex 60 MG/2 ML ONE (22:17)
[2022-12-06] MEDS ORDERED: TORAdol 30 mg Injection ONE (22:17)
[2022-12-06] MEDS ORDERED: PERCOCET TABLET 5/325MG PO STA (23:55)
[2022-12-06] MEDS ORDERED: PERCOCET TABLET 5/325MG ONE (23:58)
[2022-12-07 00:11] VITALS: BP 124/62; PULSE 66; O2SAT 100
--- NOTE | 2022-12-07 08:40 | XRAY ---
Indication: Low back pain following injury. Multiple contiguous axial images obtained through the lumbar spine. Sagittal and coronal reformatted images obtained. Comparison: CT abdomen/pelvis June 09, 2022. Axial images negative for acute fracture, suspicious bony lesions, or spinal canal stenosis. Facets are symmetric. Sagittal and coronal reformatted images demonstrates normal alignment with vertebral body heights/disc spaces maintained. No acute compression fracture or subluxation. Visualized noncontrasted soft tissues are unremarkable again with incidental cholecystectomy clips. Impression: Continued normal CT lumbar spine without contrast exam. Comment: Preliminary interpretation made by [facility]. No critical discrepancy.
== END 2022-12-07 00:11 | disposition home or self-care (01) ==
LOC: ED 21:48
DX: M54.50 Low back pain, unspecified (principal); X50.0XXA Overexertion from strenuous movement or load, initial encounter; Y99.0 Civilian activity done for income or pay; Z79.52 Long term (current) use of systemic steroids; Z79.899 Other long term (current) drug therapy; Z28.310 Unvaccinated for COVID-19
CPT/HCPCS: 72131; 81025; 96372; 99284; J1885; J2360; A9270-GY

== ENCOUNTER 2023-03-28 00:28 | Emergency (ER) | payer OTHER ==
[2023-03-28] MEDS ORDERED: BABY ASPIRIN 81 MG CHEW PO ONE (01:02)
[2023-03-28] MEDS ORDERED: TORAdol 30 mg Injection IV ONE (01:03)
[2023-03-28] MEDS ORDERED: TORAdol 30 mg Injection ONE (01:07)
[2023-03-28 01:09] LABS: Absolute Neutrophil Ct (ANC) 5.14 x10^3/uL (1.4-6.9); BASOPHIL % 0.2 % (0.0-0.4); Basophil (Absolute #) 0.02 x10^3/uL (0-0.4); Eosinophil % 1.9 % (0.00-5.0); Eosinophil (Absolute #) 0.16 x10^3/uL (0-0.5); Hematocrit 37.4 % (35-47); Hemoglobin 12.1 g/dL (12.0-16.0); IMMATURE GRAN # 0.03 x10^3u/L (0.00-0.03); IMMATURE GRAN % 0.4 % (0.00-0.4); Lymphocyte (Absolute #) 2.48 x10^3/uL (1.0-4.6); Lymphocytes % 29.6 % (24.0-44.0); Mean Cell Volume 87.8 fL (78-100); Mean Corpuscular Hemoglobin 28.4 pg (26-32); Mean Corpuscular Hgb Concent. 32.4 g/dL (32-36); Monocyte (Absolute #) 0.55 x10^3/uL (0.0-1.3); Monocytes % 6.6 % (0.0-12.0); Neutrophil % 61.3 % (36.0-66.0); Platelet Count 213 x10^3/uL (150-450); Red Blood Count 4.26 x10^6/uL (4.1-5.4); Red Cell Distribution Width 12.5 % (11.5-14.0); White Blood Count 8.4 x10^3/uL (4.0-10.5)
[2023-03-28 01:15] LABS: ALBUMIN 4.1 g/dL (3.5-5.0); ALKALINE PHOSPHATASE 85 U/L (38-126); ANION GAP 13.1 MEQ/L (5-15); BLOOD UREA NITROGEN 17 mg/dL (7-17); CHLORIDE 102 mmol/L (98-107); CK-Creatinine Phosphokinase 65 U/L (30-135); Calcium 8.9 mg/dL (8.4-10.2); Carbon Dioxide 27 mmol/L (22-30); EST GLOMERULAR FILTRATION RATE > 60.0 ML/MIN; Glucose 100 mg/dL (74-106); Potassium 3.7 mmol/L (3.5-5.1); SGOT/AST 20 U/L (14-36); SGPT/ALT 18 U/L (0-35); SODIUM 139 mmol/L (137-145); Total Protein 7.4 g/dL (6.3-8.2)
--- NOTE | 2023-03-28 01:15 | ERPHSYRPT ---
- History of Present Illness Time Seen by Provider: 03/28/23 00:29 Historian: patient Exam Limitations: no limitations Patient Subjective Stated Complaint: pt states " my chest started hurting around 1600. It hurts right in the center. it hurts worse when I raise my arms and breath in deep" Triage Nursing Assessment: pt ambulatory to bed by self, pt alert and oriented x3, skin pwd, vitals wnl, pt c/o chest pain that started yesterday around 1600. pain has gotten worse over the day. pt denies any cardiac hx, pt states "my chest hurts when I raise my arms above my head and when I take a deep breath" Physician History: 23 years old with history of anxiety, depression presented in the ER with substernal chest pain since 4 PM yesterday, moderate intensity without any significant aggravating or relieving factors, hurts to take it deep breath. Patient reports she was lifting heavy objects earlier yesterday and thought it was probably secondary to some muscle strain and took a muscle relaxant but did not make much difference. Timing/Duration: yesterday, sudden, worse Activities at Onset: activity Quality: sharpness Location: substernal Chest Pain Radiation: no radiation Severity of Pain-Max: moderate Severity of Pain-Current: moderate Modifying Factors: Improves With: nothing Associated Symptoms: hurts to breathe Prior Chest Pain/Cardiac Workup: no prior chest pain, no prior cardiac workup Nitro Today/Relief: no nitro taken today Aspirin Treatment Today: no aspirin today Allergies/Adverse Reactions: No Known Drug Allergies Allergy (Verified 03/28/23 00:31) Home Medications: Buspirone HCl 10 mg PO DAILY 03/28/23 [History] PARoxetine HCL [Paxil] 40 mg PO DAILY 03/28/23 [History] Hx Tetanus, Diphtheria Vaccination/Date Given: Yes Hx Influenza Vaccination/Date Given: No Hx Pneumococcal Vaccination/Date Given: No Travel Risk - International Travel Have you traveled outside of the country in past 3 weeks: No - Coronavirus Screening Are you exhibiting any of the following symptoms?: No Close contact with a COVID-19 positive Pt in past 14-21 Days: No - Vaccine Status Have you recieved a Covid-19 vaccination: No - Review of Systems Constitutional: No Symptoms Eyes: No Symptoms Ears, Nose, & Throat: No Symptoms Respiratory: No Symptoms Cardiac: Chest Pain Abdominal/Gastrointestinal: No Symptoms Genitourinary Symptoms: No Symptoms Musculoskeletal: No Symptoms Skin: No Symptoms Neurological: No Symptoms Endocrine: No Symptoms - Past Medical History Pertinent Past Medical History: Yes Neurological History: Migraines, Other ENT History: No Pertinent History Cardiac History: No Pertinent History Respiratory History: No Pertinent History Endocrine Medical History: No Pertinent History Musculoskeletal History: No Pertinent History GI Medical History: GERD, Gallbladder Disease History: No Pertinent History Psycho-Social History: Anxiety, Depression Female Reproductive Disorders: No Pertinent History Other Medical History: recent n/v, diarrhea, stomach bloating - Past Surgical History Past Surgical History: Yes Neuro Surgical History: No Pertinent History Cardiac: No Pertinent History Respiratory: No Pertinent History Gastrointestinal: Cholecystectomy Genitourinary: No Pertinent History Musculoskeletal: No Pertinent History Female Surgical History: No Pertinent History Other Surgical History: EGD - Social History Smoking Status: Never smoker Exposure to second hand smoke: No Drug Use: none Patient Lives Alone: No Significant Family History: no pertinent family hx - Female History Hx Last Menstrual Period: 02/26/23 Hx Now: (UNKN) - Nursing Vital Signs Nursing Vital Signs: Initial Vital Signs Temperature 97.4 F 03/28/23 00:37 Pulse Rate 78 03/28/23 00:37 Respiratory Rate 18 03/28/23 00:37 Blood Pressure 108/73 03/28/23 00:37 O2 Sat by Pulse Oximetry 96 03/28/23 00:37 Pain Scale Pain Intensity 6 - Physical Exam General Appearance: no apparent distress, alert, anxiety Eye Exam: PERRL/EOMI Ears, Nose, Throat Exam: normal ENT inspection Neck Exam: normal inspection, non-tender, supple, full range of motion Respiratory Exam: normal breath sounds, lungs clear Cardiovascular Exam: regular rate/rhythm, normal heart sounds Gastrointestinal/Abdomen Exam: soft, normal bowel sounds, No tenderness Back Exam: normal inspection Extremity Exam: normal inspection, normal range of motion Neurologic Exam: alert, oriented x 3, cooperative Skin Exam: normal color SpO2 Interpretation: normal SpO2: 96 O2 Delivery: Room Air - Course EKG Interpreted by Me: RATE (71), Sinus Rhythm, NORMAL AXIS, NORMAL INTERVALS, NORMAL QRS Ordered Tests: Active Orders 24 hr Category Date Time Status Lamin[employer] STAT Care 03/28/23 01:03 Active EKG-ER Only STAT Care 03/28/23 01:02 Active IV Insertion STAT Care 03/28/23 01:02 Active Pulse Oximetry (ED) STAT Care 03/28/23 01:02 Active CHEST 1 VIEW (PORTABLE) Stat Exams 03/28/23 01:02 Taken CBC W DIFF Stat Lab 03/28/23 01:05 Completed CK-Creatinine Phosphokinase Stat Lab 03/28/23 01:05 Completed CMP Stat Lab 03/28/23 01:05 Completed D-DIMER QUANTITATIVE Stat Lab 03/28/23 01:05 Completed HCG QUALITATIVE, URINE Stat Lab 03/28/23 Ordered NT PRO BNPII Stat Lab 03/28/23 01:05 Completed TROPONIN Q4H Lab 03/28/23 01:05 Completed TROPONIN Q4H Lab 03/28/23 05:15 Ordered TROPONIN Q4H Lab 03/28/23 09:15 Ordered Medication Summary Discontinued Medications Generic Name Dose Route Start Last Admin Trade Name Freq PRN Reason Stop Dose Admin Aspirin 324 mg 03/28/23 01:02 03/28/23 01:09 Aspirin 81 Mg Tab.Chew PO 03/28/23 01:03 324 mg STAT ONE Administration Ketorolac Tromethamine 30 mg 03/28/23 01:03 03/28/23 01:08 Ketorolac Tromethamine 30 Mg/Ml Inj IV 03/28/23 01:04 30 mg STAT ONE Administration Ketorolac Tromethamine Confirm 03/28/23 01:07 Ketorolac Tromethamine 30 Mg/Ml Inj Administered 03/28/23 01:08 Dose 30 mg .ROUTE .STK-MED ONE Lab/Rad Data: Laboratory Result Diagrams 03/28/23 01:05 03/28/23 01:05 Laboratory Results 03/28/23 03/28/23 03/28/23 Range/Units 01:05 01:05 01:05 WBC (4.0-10.5) x10^3/uL RBC (4.1-5.4) x10^6/uL Hgb (12.0-16.0) g/dL Hct (35-47) % MCV (78-100) fL MCH (26-32) pg MCHC (32-36) g/dL RDW (11.5-14.0) % Plt Count (150-450) x10^3/uL MPV (7.5-11.0) fL Gran % (36.0-66.0) % Immature Gran % (Auto) (0.00-0.4) % Nucleat RBC Rel Count (0.00-0.1) % Eos # (Auto) (0-0.5) x10^3/uL Immature Gran # (Auto) (0.00-0.03) x10^3u/L Absolute Lymphs (auto) (1.0-4.6) x10^3/uL Absolute Monos (auto) (0.0-1.3) x10^3/uL Absolute Nucleated RBC (0.00-0.01) x10^3u/L Lymphocytes % (24.0-44.0) % Monocytes % (0.0-12.0) % Eosinophils % (0.00-5.0) % Basophils % (0.0-0.4) % Absolute Granulocytes (1.4-6.9) x10^3/uL Basophils # (0-0.4) x10^3/uL D-Dimer 0.44 (0.0-0.50) mg/L Sodium 139 (137-145) mmol/L Potassium 3.7 (3.5-5.1) mmol/L Chloride 102 (98-107) mmol/L Carbon Dioxide 27 (22-30) mmol/L Anion Gap 13.1 (5-15) MEQ/L BUN 17 (7-17) mg/dL Creatinine 0.60 (0.52-1.04) mg/dL Estimated GFR > 60.0 ML/MIN Glucose 100 (74-106) mg/dL Calcium 8.9 (8.4-10.2) mg/dL Total Bilirubin 0.40 (0.2-1.3) mg/dL AST 20 (14-36) U/L ALT 18 (0-35) U/L Alkaline Phosphatase 85 (38-126) U/L Creatine Kinase 65 (30-135) U/L Troponin I < 0.012 (0.000-0.034) ng/mL NT-Pro-B Natriuret Pep < 20.0 (<300) pg/mL Serum Total Protein 7.4 (6.3-8.2) g/dL Albumin 4.1 (3.5-5.0) g/dL 03/28/23 Range/Units 01:05 WBC 8.4 (4.0-10.5) x10^3/uL RBC 4.26 (4.1-5.4) x10^6/uL Hgb 12.1 (12.0-16.0) g/dL Hct 37.4 (35-47) % MCV 87.8 (78-100) fL MCH 28.4 (26-32) pg MCHC 32.4 (32-36) g/dL RDW 12.5 (11.5-14.0) % Plt Count 213 (150-450) x10^3/uL MPV 10.0 (7.5-11.0) fL Gran % 61.3 (36.0-66.0) % Immature Gran % (Auto) 0.4 (0.00-0.4) % Nucleat RBC Rel Count 0.0 (0.00-0.1) % Eos # (Auto) 0.16 (0-0.5) x10^3/uL Immature Gran # (Auto) 0.03 (0.00-0.03) x10^3u/L Absolute Lymphs (auto) 2.48 (1.0-4.6) x10^3/uL Absolute Monos (auto) 0.55 (0.0-1.3) x10^3/uL Absolute Nucleated RBC 0.00 (0.00-0.01) x10^3u/L Lymphocytes % 29.6 (24.0-44.0) % Monocytes % 6.6 (0.0-12.0) % Eosinophils % 1.9 (0.00-5.0) % Basophils % 0.2 (0.0-0.4) % Absolute Granulocytes 5.14 (1.4-6.9) x10^3/uL Basophils # 0.02 (0-0.4) x10^3/uL D-Dimer (0.0-0.50) mg/L Sodium (137-145) mmol/L Potassium (3.5-5.1) mmol/L Chloride (98-107) mmol/L Carbon Dioxide (22-30) mmol/L Anion Gap (5-15) MEQ/L BUN (7-17) mg/dL Creatinine (0.52-1.04) mg/dL Estimated GFR ML/MIN Glucose (74-106) mg/dL Calcium (8.4-10.2) mg/dL Total Bilirubin (0.2-1.3) mg/dL AST (14-36) U/L ALT (0-35) U/L Alkaline Phosphatase (38-126) U/L Creatine Kinase (30-135) U/L Troponin I (0.000-0.034) ng/mL NT-Pro-B Natriuret Pep (<300) pg/mL Serum Total Protein (6.3-8.2) g/dL Albumin (3.5-5.0) g/dL - Progress Progress: improved, re-examined Air Movement: good Progress Note: 03/28/23 01:48 23 years old is evaluated for substernal chest pain started around 4 PM yesterday, continuous, no aggravating relieving factors. Patient is not in any distress. Does report having some exertional work prior to start of pain. EKG is normal sinus rhythm with no acute ischemic changes. Chest x-ray negative for any acute cardiopulmonary findings reviewed by me, negative troponin and D- dimers. Normal white count, fairly unremarkable chemistries. Patient is given symptomatic treatment with Toradol as her pain seems more of a musculoskeletal, I do not think it is cardiac in nature and 1 negative troponin rules it out as the amount of time is long enough to have rising troponin if it is coming from cardiac cause. Recommended outpatient follow-up. Patient is low risk/low heart score, do not think any further work-up, stable for discharge. I have discusse d lab work, imaging and plan of care with patient in detail who understand and agrees with it. Recommended taking Tylenol ibuprofen as needed. Discussed signs symptoms of worsening needing return to ER which she seems understanding. Blood Culture(s) Obtained: No Antibiotics given: No Counseled pt/family regarding: lab results, diagnosis, need for follow-up, rad results Medical Desision Making - Discussion of managment Reviewed:: Test results Agreed on:: Treatment plan, need for follow-up - Diagnostic Testing Diagnostic test were ordered, analyzed, and reviewed by me: Yes Radiological Interpretation: Interpreted by me, Reviewed by me - Risk of complications The pt has a mod risk of morbidity or mortality based on: Need for prescription drug management - Departure Departure Disposition: Home Clinical Impression: Atypical chest pain Condition: Stable Critical Care Time: No Referrals: CHOCO HUERTA MD [ACTIVE STAFF] - Follow up with PCP 1 day Instructions: Angina (DC), Chest Pain (DC) Additional Instructions: Take Tylenol ibuprofen as needed for pain. Avoid exertional activities, follow- up with primary care for reevaluation. Return to ER for worsening chest pain or if having difficulty breathing etc.
[2023-03-28 01:26] LABS: NT PRO BNPII < 20.0 pg/mL (<300); TROPONIN < 0.012 ng/mL (0.000-0.034)
[2023-03-28 02:04] VITALS: BP 90/50; PULSE 68; O2SAT 97
--- NOTE | 2023-03-28 08:41 | XRAY ---
Indication: Chest pain. Comparison: November 05, 2021 Portable chest again demonstrates normal heart, lungs, and bony thorax.
== END 2023-03-28 02:04 | disposition home or self-care (01) ==
LOC: ED 00:28
DX: R07.89 Other chest pain (principal); Z79.899 Other long term (current) drug therapy; Z28.310 Unvaccinated for COVID-19
CPT/HCPCS: 36000; 36415; 71045; 80053; 82550; 83880; 84484; 85025; 85379; 93005; 93041; 94760; 96374; 99284; J1885; A9270-GY

== ENCOUNTER 2023-05-30 01:23 | Emergency (ER) | payer OTHER ==
[2023-05-30] MEDS ORDERED: MORPHINE SULFATE 4 MG INJ IM ONE (01:45)
[2023-05-30 01:50] VITALS: O2SAT 99
[2023-05-30] MEDS ORDERED: MORPHINE SULFATE 4 MG INJ ONE (01:50)
[2023-05-30] MEDS ORDERED: CLEOCIN 150 MG CAPSULE PO ONE (01:51)
[2023-05-30] MEDS ORDERED: CLEOCIN 150 MG CAPSULE ONE (01:52)
--- NOTE | 2023-05-30 01:56 | ERPHSYRPT ---
- History of Present Illness Time Seen by Provider: 05/30/23 01:38 Source: patient Exam Limitations: no limitations Patient Subjective Stated Complaint: pt states she had left upper and lower wisdom teeth removed 05/[address] Sweet. on the she started having pain to the left lower site that worsened and on the she came to [facility] and was told she had "dry socket" and prescribed po toradol which pt states made her sick to the stomach so she stopped taking it and was told to ES tylenol for pain. also was able to see Dr Sweet on the who prescribed her clove oil which pt states didn't help. left lower tooth had to be "cut out". Triage Nursing Assessment: pt ambulated to room 10 independently with slow steady gait after standing on scale for weight acquisition. pt is alert and oriented times three, able to move all extremities, able to speak in complete sentences, and with resp even and unlabored. denies fever, chills, cough, sob, or difficulty breathing. no facial swelling noted. Physician History: 23 years old with left upper and lower molar removal [address] Sweet presented in the ER with chief complaint of dry socket in the lower 1. Patient reports she started to have pain, was evaluated in urgent care and later on by primary dentist who gave LASHONDA while but pain is not improving. She was given Toradol for symptomatic relief but it upsets her stomach and could not tolerated very well. She has been taking Tylenol with no significant relief. Pain is moderate to severe sharp with no swelling around. No fever or chills reported. Allergies/Adverse Reactions: No Known Drug Allergies Allergy (Verified 05/30/23 01:36) Home Medications: Buspirone HCl 10 mg PO DAILY 03/28/23 [History] PARoxetine HCL [Paxil] 40 mg PO DAILY 03/28/23 [History] Hx Tetanus, Diphtheria Vaccination/Date Given: Yes Hx Influenza Vaccination/Date Given: No Hx Pneumococcal Vaccination/Date Given: No Immunizations Up to Date: Yes Travel Risk - International Travel Have you traveled outside of the country in past 3 weeks: No - Coronavirus Screening Are you exhibiting any of the following symptoms?: No Close contact with a COVID-19 positive Pt in past 14-21 Days: No - Vaccine Status Have you recieved a Covid-19 vaccination: No - Review of Systems Constitutional: No Symptoms Eyes: No Symptoms Ears, Nose, & Throat: Mouth Pain Respiratory: No Symptoms Cardiac: No Symptoms Abdominal/Gastrointestinal: No Symptoms Genitourinary Symptoms: No Symptoms Musculoskeletal: No Symptoms Neurological: No Symptoms - Past Medical History Pertinent Past Medical History: Yes Neurological History: Migraines, Other ENT History: No Pertinent History Cardiac History: No Pertinent History Respiratory History: No Pertinent History Endocrine Medical History: No Pertinent History Musculoskeletal History: No Pertinent History GI Medical History: GERD, Gallbladder Disease History: No Pertinent History Psycho-Social History: Anxiety, Depression Female Reproductive Disorders: No Pertinent History Other Medical History: recent n/v, diarrhea, stomach bloating. wisdom tooth removal 05/24/23 with dry socket. - Past Surgical History Past Surgical History: Yes Neuro Surgical History: No Pertinent History Cardiac: No Pertinent History Respiratory: No Pertinent History Gastrointestinal: Cholecystectomy Genitourinary: No Pertinent History Musculoskeletal: No Pertinent History Female Surgical History: No Pertinent History Other Surgical History: EGD - Social History Smoking Status: Never smoker Exposure to second hand smoke: Yes Drug Use: none Patient Lives Alone: No Significant Family History: no pertinent family hx - Female History Hx Last Menstrual Period: 05/23/23 Hx Now: No - Nursing Vital Signs Nursing Vital Signs: Initial Vital Signs Temperature 97.9 F 05/30/23 01:37 Pulse Rate 74 05/30/23 01:37 Respiratory Rate 16 05/30/23 01:37 Blood Pressure 121/75 05/30/23 01:37 O2 Sat by Pulse Oximetry 99 05/30/23 01:37 Pain Scale Pain Intensity 10 - Physical Exam General Appearance: no apparent distress, alert Eye Exam: bilateral eye: normal inspection, PERRL, EOMI Ear Exam: bilateral ear: auricle normal Nasal Exam: normal inspection Throat Exam: pharynx normal, dental tenderness (Left lower molar raw surface from tooth extraction with partial plugging. Tenderness around. Mild swelling of gingiva.) Neck Exam: normal inspection, supple, full range of motion Cardiovascular/Respiratory Exam: normal breath sounds, regular rate/rhythm Neurologic Exam: alert, oriented x 3, cooperative, route rider II-XII nml as tested Skin Exam: normal color SpO2 Interpretation: normal SpO2: 99 O2 Delivery: Room Air Ordered Tests: Medication Summary Generic Name Dose Route Start Last Admin Trade Name Freq PRN Reason Stop Dose Admin Clindamycin HCl 300 mg 05/30/23 01:51 Clindamycin Hcl 150 Mg Capsule PO 05/30/23 01:52 STAT ONE Discontinued Medications Generic Name Dose Route Start Last Admin Trade Name Angelique PRN Reason Stop Dose Admin Morphine Sulfate 4 mg 05/30/23 01:45 05/30/23 01:51 Morphine Sulfate 4 Mg/Ml Injection IM 05/30/23 01:46 4 mg STAT ONE Administration - Progress Progress: pain not gone completely Progress Note: 05/30/23 01:54 23 years old with left upper and lower molar removal [address] Sweet presented in the ER with chief complaint of dry socket in the lower 1. Patient reports she started to have pain, was evaluated in urgent care and later on by primary dentist who gave LASHONDA while but pain is not improving. She was given Toradol for symptomatic relief but it upsets her stomach and could not tolerated very well. She has been taking Tylenol with no significant relief. Pain is moderate to severe sharp with no swelling around. No fever or chills reported. Patient has mild gingival swelling and tenderness around tooth extraction site with no obvious plaque of blood but some mucus collection. I believe patient has some element of dry socket, given morphine for symptomatic relief and started on clindamycin and recommended outpatient dental follow-up in the morning. 05/30/23 01:56 Counseled pt/family regarding: diagnosis, need for follow-up Medical Desision Making - Risk of complications The pt has a mod risk of morbidity or mortality based on: Need for prescription drug management - Departure Departure Disposition: Home Clinical Impression: Dry tooth socket Condition: Stable Critical Care Time: No Referrals: DAQUAN HARTLEY [Primary Care Provider] - Follow up/PCP as directed MENDEZ SWEET DDS [NON-STAFF PHY W/O PRIVILEGES] - Follow up/PCP as directed (Call in the morning for reevaluation) Instructions: Dental Pain (DC) Additional Instructions: Take Tylenol/ibuprofen as needed. Continue using the clove oil. Follow-up with your dentist for reevaluation in the morning. Return to ER for any worsening. Prescriptions: clindamycin HCL [Clindamycin HCl] 300 mg PO QID 7 Days #28 cap
[2023-05-30 01:57] VITALS: BP 110/79; PULSE 71
== END 2023-05-30 02:14 | disposition home or self-care (01) ==
LOC: ED 01:23
DX: M27.3 Alveolitis of jaws (principal); K08.89 Other specified disorders of teeth and supporting structures; Z79.899 Other long term (current) drug therapy; Z28.310 Unvaccinated for COVID-19
CPT/HCPCS: 96372; 99283; J2270; A9270-GY

== ENCOUNTER 2023-10-15 20:12 | Emergency (ER) | payer OTHER ==
[2023-10-15 20:30] VITALS: TEMP 100.7; O2SAT 99
[2023-10-15] MEDS ORDERED: TYLENOL EXTRA STRENGTH 500 MG PO ONE (20:39)
--- NOTE | 2023-10-15 20:39 | ERPHSYRPT ---
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 Patient Subjective Stated Complaint: Pt states that she took a home test for covid 5 days ago and it was positive, went to [facility] today because she was still feeling bad and they gave her tessalon pearles, pro air inh, and zpack, and she thinks that she might have flu A because her boyfriend has it Triage Nursing Assessment: Pt brought to the ER by her boyfriend, tachycardic, febrile, denies pain, pulses normal, last vomited yesterday, decreased food, drinking water and gatorade, did not take any tylenol for her fever Physician History: Pt states that she took a home test for covid 5 days ago and it was positive, went to [facility] today because she was still feeling bad and they gave her tessalon pearles, pro air inh, and zpack, and she thinks that she might have flu A because her boyfriend has it Patient main complaint is fever and generalized body ache. Timing/Duration: day(s) (two days) Fever Severity: moderate Associated Symptoms: muscle aches, weakness Allergies/Adverse Reactions: No Known Drug Allergies Allergy (Verified 10/15/23 20:30) Home Medications: Buspirone HCl 10 mg PO DAILY 03/28/23 [History] PARoxetine HCL [Paxil] 40 mg PO DAILY 03/28/23 [History] Hx Tetanus, Diphtheria Vaccination/Date Given: Yes Hx Influenza Vaccination/Date Given: No Hx Pneumococcal Vaccination/Date Given: No Travel Risk - International Travel Have you traveled outside of the country in past 3 weeks: No - Coronavirus Screening Are you exhibiting any of the following symptoms?: Yes Symptoms: Fever, Cough: New Onset Close contact with a COVID-19 positive Pt in past 14-21 Days: No - Vaccine Status Have you recieved a Covid-19 vaccination: No - Review of Systems Constitutional: Fever, Malaise, No Chills Eyes: No Symptoms Ears, Nose, & Throat: No Symptoms Respiratory: No Cough, No Dyspnea Cardiac: No Chest Pain, No Edema, No Syncope Abdominal/Gastrointestinal: No Abdominal Pain, No Nausea, No Vomiting, No Diarrhea Genitourinary Symptoms: No Dysuria Musculoskeletal: No Back Pain, No Neck Pain Skin: No Rash Neurological: No Dizziness, No Focal Weakness, No Sensory Changes Psychological: No Symptoms Endocrine: No Symptoms All Other Systems: Reviewed and Negative - Past Medical History Pertinent Past Medical History: Yes Neurological History: Migraines, Other ENT History: No Pertinent History Cardiac History: No Pertinent History Respiratory History: No Pertinent History Endocrine Medical History: No Pertinent History Musculoskeletal History: No Pertinent History GI Medical History: GERD, Gallbladder Disease History: No Pertinent History Psycho-Social History: Anxiety, Depression Female Reproductive Disorders: No Pertinent History Other Medical History: recent n/v, diarrhea, stomach bloating. wisdom tooth removal 05/24/23 with dry socket. - Past Surgical History Past Surgical History: Yes Neuro Surgical History: No Pertinent History Cardiac: No Pertinent History Respiratory: No Pertinent History Gastrointestinal: Cholecystectomy Genitourinary: No Pertinent History Musculoskeletal: No Pertinent History Female Surgical History: No Pertinent History Other Surgical History: EGD - Social History Smoking Status: Light tobacco smoker How long have you smoked: vape Exposure to second hand smoke: Yes Drug Use: none Patient Lives Alone: No Significant Family History: no pertinent family hx - Female History Hx Last Menstrual Period: irregular Hx Now: No - Nursing Vital Signs Nursing Vital Signs: Initial Vital Signs Temperature 100.7 F 10/15/23 20:18 Pulse Rate 111 H 10/15/23 20:18 Blood Pressure 116/71 10/15/23 20:18 O2 Sat by Pulse Oximetry 99 10/15/23 20:18 Pain Scale Pain Intensity 0 - Physical Exam General Appearance: no apparent distress, alert Eye Exam: PERRL/EOMI ENT Exam: normal ENT inspection, No pharyngeal erythema, No tonsillar exudate Neck Exam: supple, full range of motion, No meningismus Respiratory Exam: normal breath sounds, lungs clear, no respiratory distress Cardiovascular/Chest Exam: normal heart sounds, regular rate/rhythm, No murmur, No edema Gastrointestinal/Abdominal Exam: soft, non tender, no distention Extremity Exam: non-tender, normal range of motion, normal inspection, normal capillary refill Neurologic Exam: alert, oriented x 3, 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, 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, normal mood/affect, sensation nml, No motor deficits Skin Exam: normal color, warm, dry, No rash SpO2: 99 - Course Nursing assessment & vital signs reviewed: Yes Ordered Tests: Active Orders 24 hr Category Date Time Status MONO SCREEN Stat Lab 10/15/23 20:45 Completed UA W/RFX UR CULTURE Stat Lab 10/15/23 20:45 Completed Medication Summary Discontinued Medications Generic Name Dose Route Start Last Admin Trade Name Angelique PRN Reason Stop Dose Admin Acetaminophen 1,000 mg 10/15/23 20:39 10/15/23 20:43 Acetaminophen 500 Mg Tablet PO 10/15/23 20:40 1,000 mg STAT ONE Administration Acetaminophen Confirm 10/15/23 20:42 Acetaminophen 500 Mg Tablet Administered 10/15/23 20:43 Dose 1,000 mg .ROUTE .STK-MED ONE Lab/Rad Data: Laboratory Results 10/15/23 10/15/23 10/15/23 Range/Units 20:45 20:45 20:45 Urine Color Yellow (Yellow) Urine Appearance Clear (Clear) Urine pH 6.5 (4.6-8.0) Ur Specific [place] 1.020 (1.005-1.030) Urine Protein Negative (Negative) Urine Glucose (UA) Negative (Negative) mg/dL Urine Ketones Negative (Negative) Urine Blood Negative (Negative) Urine Nitrite Negative (Negative) Urine Bilirubin Negative (Negative) Urine Urobilinogen 1.0 A (0.2) mg/dL Ur Leukocyte Esterase Negative (Negative) U Hyaline Cast (Auto) NONE SEEN (0-2) /LPF Urine Microscopic RBC 0-2 (0-5) /HPF Urine Microscopic WBC 0-2 (0-5) /HPF Ur Epithelial Cells Rare (None Seen) /HPF Urine Bacteria None Seen (None Seen) /HPF Urine Culture Reflexed NO (NO) Monoscreen POSITIVE A (NEGATIVE) Influenza Type A Ag POSITIVE (NEGATIVE) Influenza Type B Ag NEGATIVE (NEGATIVE) RSV (PCR) NEGATIVE (NEGATIVE) SARS-CoV-2 (PCR) NEGATIVE (NEGATIVE) Group A Strep Antibody (NEGATIVE) 10/15/23 Range/Units 20:45 Urine Color (Yellow) Urine Appearance (Clear) Urine pH (4.6-8.0) Ur Specific [place] (1.005-1.030) Urine Protein (Negative) Urine Glucose (UA) (Negative) mg/dL Urine Ketones (Negative) Urine Blood (Negative) Urine Nitrite (Negative) Urine Bilirubin (Negative) Urine Urobilinogen (0.2) mg/dL Ur Leukocyte Esterase (Negative) U Hyaline Cast (Auto) (0-2) /LPF Urine Microscopic RBC (0-5) /HPF Urine Microscopic WBC (0-5) /HPF Ur Epithelial Cells (None Seen) /HPF Urine Bacteria (None Seen) /HPF Urine Culture Reflexed (NO) Monoscreen (NEGATIVE) Influenza Type A Ag (NEGATIVE) Influenza Type B Ag (NEGATIVE) RSV (PCR) (NEGATIVE) SARS-CoV-2 (PCR) (NEGATIVE) Group A Strep Antibody NOT DETECTED (NEGATIVE) - Progress Progress: improved Counseled pt/family regarding: lab results, diagnosis, need for follow-up Medical Desision Making - Diagnostic Testing Diagnostic test were ordered, analyzed, and reviewed by me: Yes - Risk of complications Low Risk: Low risk of morbidity from additional dx testing or treatment - Departure Departure Disposition: Home Clinical Impression: Influenza A Mononucleosis Qualifiers: Infectious mononucleosis etiology: cytomegalovirus Infectious mononucleosis complication: without complication Qualified Code(s): B27.10 - Cytomegaloviral mononucleosis without complications Condition: Stable Critical Care Time: No Referrals: DAQUAN HARTLEY [Primary Care Provider] - Follow up/PCP as directed Instructions: Fever, Adult (DC), Mononucleosis, Flu, Adult (DC) Additional Instructions: Discharge/Care Plan GUILLERMO GILLILANDSTEPHONWendy MENENDEZ was seen on 10/15/23 in the Emergency Room. The patient was counseled regarding Diagnosis,Lab results, Imaging studies, need for follow up and when to return to the Emergency Room. Prescriptions given: Discharge Note I have spoken with the patient and/or caregivers. I have explained the patient's condition, diagnosis and treatment plan based on the information available to me at this time. I have answered the patient's and/or caregiver's questions and addressed any concerns. The patient and/or caregivers have as good understanding of the patient's diagnosis, condition and treatment plan as can be expected at this point. The vital signs have been stable. The patient's condition is stable and appropriate for discharge from the emergency department. The patient will pursue further outpatient evaluation with the primary care physician or other designated or consulting physician as outlined in the discharge instructions. The patient and/or caregivers are agreeable to this plan of care and follow-up instructions have been explained in detail. The patient and/or caregivers have received these instruction. The patient/and or caregivers are aware that any significant change in condition or worsening of symptoms should prompt an immediate return to this or the closest emergency department or call 911. DUNIA GILLILAND was seen on 10/15/23 n the Emergency Room. At that time you were treated for an emergent condition, during your visit Laboratory, Radiology and/or other procedures may have been ordered. It is very important t hat you follow-up with your Primary Care Physician DAQUAN HARTLEY within the next 24-48 hours to review your Emergency Room visit and the final results of testing that was ordered. Some test results such as Urine Cultures, Blood Cultures, and other cultures if ordered will not be finalized for 24-48 hours. If you do not have a Primary Care Provider please call the medical records department at [phone] to obtain a copy of your results or you may sign into our patient portal to obtain these results by visiting us @ [email or web address] and completing the following steps: 1. Click on the Patient Portal link 2. Click the Patient Self Enrollment Link to complete the enrollment form and entering your 3. Once the enrollment form is completed you will receive an email with a temporary ID and password at the email address you provided. 4. Next choose a user name and password. Your user name must be at least 4 characters long and your password must be at least 4 characters long. 5. Choose a security question from the list and provide your answer to the question. If you already have signed into the Health Portal you may access your Health Care Information 06/06 by the following steps: 1. Login to our website @ [email or web address] 2. Enter your original user name and password. FAQS The [facility] Health Portal is an online tool that contains your Lab Results, Radiology Reports, Visit History, Discharge Instructions and Health Summary Lab and Radiology Results will not be available for 72 hours on the portal. The Portal is a secure site, passwords are encryted and URLs are re-written so they cannot be copied and pasted. You and authorized family members are the only ones who can access your Portal. Also there is a timeout feature that protects your information if you leave the Portal page open. If you have technical difficulty please use the Contact Us link on the page this will allow you to submit any questions you have regarding the Portal or you may contact the Medical Record Department at [phone] ext [phone]. Prescriptions: Oseltamivir 75 mg [Tamiflu 75MG Capsule] 75 mg PO BID #10 cap
[2023-10-15] MEDS ORDERED: TYLENOL EXTRA STRENGTH 500 MG ONE (20:42)
[2023-10-15 21:02] LABS: Appearance Clear (Clear); Bacteria None Seen /HPF (None Seen); Bilirubin Negative (Negative); Blood Negative (Negative); Epithelial Cells Rare /HPF (None Seen); Glucose, Urine Negative (Negative); Hyaline Casts NONE SEEN /LPF (0-2); Ketones Negative (Negative); Leukocyte Esterase Negative (Negative); Nitrite Negative (Negative); Ph 6.5 (4.6-8.0); Protein,Urine Dip Negative (Negative); RBC 0-2 /HPF (0-5); WBC 0-2 /HPF (0-5)
[2023-10-15 21:07] LABS: ADD URINE CULTURE? NO (NO)
[2023-10-15 21:31] LABS: INFLUENZA B NEGATIVE (NEGATIVE); RESPIRATORY SYNCTIAL VIRUS NEGATIVE (NEGATIVE); SARS-CoV-2 Xpert Express NEGATIVE (NEGATIVE)
[2023-10-15 21:42] LABS: INFLUENZA A POSITIVE (NEGATIVE)
[2023-10-15] MEDS ORDERED: Tamiflu 75MG Capsule PO ONE ×2 (21:43→21:47)
[2023-10-15 21:54] VITALS: BP 101/58; PULSE 60; RESP 19
== END 2023-10-15 21:54 | disposition home or self-care (01) ==
LOC: ED 20:12
DX: J10.1 Influenza due to other identified influenza virus with other respiratory manifestations (principal); B27.10 Cytomegaloviral mononucleosis without complications; R50.9 Fever, unspecified; M79.10 Myalgia, unspecified site; Z79.899 Other long term (current) drug therapy; Z28.310 Unvaccinated for COVID-19; Z72.0 Tobacco use
CPT/HCPCS: 0241U; 36415; 81001; 86308; 87651; 99283; A9270-GY

== ENCOUNTER 2023-12-08 18:52 | Emergency (ER) | payer OTHER ==
[2023-12-08 19:12] VITALS: TEMP 98.3
[2023-12-08] MEDS ORDERED: MOTRIN 600 MG PO ONE (19:49)
--- NOTE | 2023-12-08 19:53 | ERPHSYRPT ---
- History of Present Illness Source: patient Patient Subjective Stated Complaint: pt states that she has had a runny nose for a week Triage Nursing Assessment: pt ambulated into the er; pt is axo x4; c/o headache; c/o rhinorhea; clear lung sounds; skin PDW; no respiratory distress present; vitals wnl Physician History: 23 years old female with no past medical history presenting to the emergency room accompanied by her complaining of frontal headache, stuffy and runny nose that she has been having for the last 7 days. The patient states that her nasal discharge is clear. She denies any fever or chills. No sore throat or coughing. She is concerned that she might be having an RSV or COVID- 19 infection since her [id number] was diagnosed with the above almost 2 weeks ago. The patient has not been taking any medications whether for her headache or runny nose. Allergies/Adverse Reactions: No Known Drug Allergies Allergy (Verified 12/08/23 19:03) Home Medications: Buspirone HCl 10 mg PO DAILY 03/28/23 [History] PARoxetine HCL [Paxil] 40 mg PO DAILY 03/28/23 [History] Hx Tetanus, Diphtheria Vaccination/Date Given: Yes Hx Influenza Vaccination/Date Given: No Hx Pneumococcal Vaccination/Date Given: No Immunizations Up to Date: Yes Travel Risk - International Travel Have you traveled outside of the country in past 3 weeks: No - Coronavirus Screening Are you exhibiting any of the following symptoms?: Yes Symptoms: Shortness of Breath Close contact with a COVID-19 positive Pt in past 14-21 Days: No - Vaccine Status Have you recieved a Covid-19 vaccination: No - Review of Systems Constitutional: No Fever, No Chills Eyes: No Symptoms Ears, Nose, & Throat: No Symptoms, Nose Congestion, Nose Discharge, Sinus Drainage Respiratory: No Cough, No Dyspnea Cardiac: No Chest Pain, No Edema, No Syncope Abdominal/Gastrointestinal: No Abdominal Pain, No Nausea, No Vomiting, No Diarrhea Genitourinary Symptoms: No Dysuria Musculoskeletal: No Back Pain, No Neck Pain Skin: No Rash Neurological: Headache, No Dizziness, No Focal Weakness, No Sensory Changes Psychological: No Symptoms Endocrine: No Symptoms All Other Systems: Reviewed and Negative - Past Medical History Pertinent Past Medical History: Yes Neurological History: Migraines, Other ENT History: No Pertinent History Cardiac History: No Pertinent History Respiratory History: No Pertinent History Endocrine Medical History: No Pertinent History Musculoskeletal History: No Pertinent History GI Medical History: GERD, Gallbladder Disease History: No Pertinent History Psycho-Social History: Anxiety, Depression Female Reproductive Disorders: No Pertinent History Other Medical History: recent n/v, diarrhea, stomach bloating. wisdom tooth removal 05/24/23 with dry socket. - Past Surgical History Past Surgical History: Yes Neuro Surgical History: No Pertinent History Cardiac: No Pertinent History Respiratory: No Pertinent History Gastrointestinal: Cholecystectomy Genitourinary: No Pertinent History Musculoskeletal: No Pertinent History Female Surgical History: No Pertinent History Other Surgical History: EGD - Social History Smoking Status: Light tobacco smoker How long have you smoked: vape Exposure to second hand smoke: Yes Drug Use: none Patient Lives Alone: No Significant Family History: no pertinent family hx - Female History Hx Now: No - Nursing Vital Signs Nursing Vital Signs: Initial Vital Signs Temperature 98.3 F 12/08/23 19:04 Pulse Rate 92 H 12/08/23 19:04 Respiratory Rate 14 12/08/23 19:04 Blood Pressure 104/67 12/08/23 19:04 O2 Sat by Pulse Oximetry 100 12/08/23 19:04 Pain Scale Pain Intensity 4 - Physical Exam General Appearance: no apparent distress, alert Eye Exam: PERRL/EOMI, eyes nml inspection Ears, Nose, Throat Exam: normal ENT inspection, TMs normal, pharynx normal, moist mucous membranes Neck Exam: normal inspection, non-tender, supple, full range of motion Respiratory Exam: normal breath sounds, lungs clear, No respiratory distress Cardiovascular Exam: regular rate/rhythm, normal heart sounds Gastrointestinal/Abdomen Exam: soft, No tenderness Back Exam: normal inspection, No CVA tenderness, No vertebral tenderness Extremity Exam: normal inspection, normal range of motion Neurologic Exam: alert, oriented x 3, cooperative, normal mood/affect, sensation nml, No motor deficits Skin Exam: normal color, warm, dry, No rash Lymphatic Exam: No adenopathy SpO2: 100 - Course Nursing assessment & vital signs reviewed: Yes Ordered Tests: Active Orders 24 hr Category Date Time Status Transfer Order Routine Transfer 12/08/23 Ordered Medication Summary Discontinued Medications Generic Name Dose Route Start Last Admin Trade Name Freq PRN Reason Stop Dose Admin Ibuprofen 600 mg 12/08/23 19:49 12/08/23 19:55 Ibuprofen 600 Mg Tablet PO 12/08/23 19:50 600 mg STAT ONE Administration Ibuprofen Confirm 12/08/23 19:55 Ibuprofen 600 Mg Tablet Administered 12/08/23 19:56 Dose 600 mg .ROUTE .STK-MED ONE Lab/Rad Data: Laboratory Results 12/08/23 Range/Units 19:45 Influenza Type A Ag NEGATIVE (NEGATIVE) Influenza Type B Ag NEGATIVE (NEGATIVE) RSV (PCR) POSITIVE (NEGATIVE) SARS-CoV-2 (PCR) NEGATIVE (NEGATIVE) - Progress Air Movement: good Progress Note: 12/08/23 19:50 23 years old female with no past medical history presenting to the emergency room complaining of frontal sinus headache, stuffy nose and runny nose and congestion that she has been having for the last 7 days. The patient is here to be checked for the COVID-19 and RSV since her [id number] was diagnosed with the above diseases 2 weeks ago. She is denying any fever or chills, no coughing, no chest pain or shortness of breath. Emergency room course and medical decision making. Check for the COVID-19, RSV and influenza A/B. For the headache the patient will be given ibuprofen 600 mg oral dose. 12/08/23 20:45 The patient's headache is completely resolved after taking the ibuprofen. She is positive for the RSV, negative for the COVID-19 and influenza A/B. The patient needs to quarantine at least for 5 days Rest, increase her fluid intake. Tylenol alternate with ibuprofen as needed for the headache and or aches/fever. Claritin, Sudafed for her runny nose. Follow-up with your family physician in 5 to 7 days otherwise follow-up as needed for any worsening symptoms Blood Culture(s) Obtained: No Antibiotics given: No - Departure Departure Disposition: Home Clinical Impression: RSV bronchitis Condition: Stable Critical Care Time: No Referrals: DAQUAN HARTLEY [Primary Care Provider] - Follow up/PCP as directed Instructions: Headache, Adult (DC) Additional Instructions: Quarantine for 5 days Alternate Tylenol ibuprofen as needed for headache, body aches, fever Claritin 10 mg daily as needed for runny nose. Rest increase fluid intake. Follow-up with family physician in 5 to 7 days or follow-up as needed for any worsening symptoms
[2023-12-08] MEDS ORDERED: MOTRIN 600 MG ONE (19:55)
[2023-12-08 20:02] VITALS: RESP 18
[2023-12-08 20:29] LABS: INFLUENZA A NEGATIVE (NEGATIVE); INFLUENZA B NEGATIVE (NEGATIVE); SARS-CoV-2 Xpert Express NEGATIVE (NEGATIVE)
[2023-12-08 20:38] LABS: RESPIRATORY SYNCTIAL VIRUS POSITIVE (NEGATIVE)
[2023-12-08 21:01] VITALS: BP 104/66; PULSE 84; O2SAT 99
== END 2023-12-08 21:01 | disposition home or self-care (01) ==
LOC: ED 18:52
DX: J20.5 Acute bronchitis due to respiratory syncytial virus (principal); R51.9 Headache, unspecified; R09.81 Nasal congestion; Z79.899 Other long term (current) drug therapy; Z28.310 Unvaccinated for COVID-19; Z72.0 Tobacco use
CPT/HCPCS: 0241U; 99283; A9270-GY

== ENCOUNTER 2024-02-12 15:46 | Emergency (ER) | payer OTHER ==
[2024-02-12 16:11] VITALS: TEMP 98; O2SAT 99
--- NOTE | 2024-02-12 16:14 | ERPHSYRPT ---
- History of Present Illness Time Seen by Provider: 02/12/24 15:56 Historian: patient Exam Limitations: no limitations Patient Subjective Stated Complaint: C/O intermittent chest pain for a few weeks Triage Nursing Assessment: Patient ambulated back to ER. No SOB. Skin tone normal. Alert and oriented; anxious. ALANA WAN. Physician History: 23 years old female with history of anxiety presented in the ER with complains of intermittent substernal chest pain for the last 2 weeks. Patient reports dull aching to sharp pain with no significant aggravating or relieving factors, last for few minutes and improves on its own. Reports having similar symptoms almost a year ago and had Holter monitoring done but did not get the results. Patient denies any difficulty breathing or palpitations associated with it. Reports earlier it was hurting 7/10 intensity but on presentation it improved and is currently chest pain-free. Nitro Today/Relief: no nitro taken today Aspirin Treatment Today: no aspirin today Allergies/Adverse Reactions: No Known Drug Allergies Allergy (Verified 02/12/24 15:54) Home Medications: Buspirone HCl 10 mg PO DAILY 03/28/23 [History] Hx Tetanus, Diphtheria Vaccination/Date Given: Yes Hx Influenza Vaccination/Date Given: No Hx Pneumococcal Vaccination/Date Given: No Immunizations Up to Date: Yes Travel Risk - International Travel Have you traveled outside of the country in past 3 weeks: No - Emerging Infectious Disease Are you exhibiting symptoms associated with any current EIDs: No - Review of Systems Constitutional: No Symptoms Eyes: No Symptoms Ears, Nose, & Throat: No Symptoms Respiratory: No Symptoms Cardiac: Chest Pain Genitourinary Symptoms: No Symptoms Musculoskeletal: No Symptoms Skin: No Symptoms Neurological: No Symptoms Psychological: Anxiety Endocrine: No Symptoms Hematologic/Lymphatic: No Symptoms - Past Medical History Pertinent Past Medical History: Yes Neurological History: Migraines, Other ENT History: No Pertinent History Cardiac History: No Pertinent History Respiratory History: No Pertinent History Endocrine Medical History: No Pertinent History Musculoskeletal History: No Pertinent History GI Medical History: GERD, Gallbladder Disease History: No Pertinent History Psycho-Social History: Anxiety, Depression Female Reproductive Disorders: No Pertinent History Other Medical History: recent n/v, diarrhea, stomach bloating. wisdom tooth removal 05/24/23 with dry socket. - Past Surgical History Past Surgical History: Yes Neuro Surgical History: No Pertinent History Cardiac: No Pertinent History Respiratory: No Pertinent History Gastrointestinal: Cholecystectomy Genitourinary: No Pertinent History Musculoskeletal: No Pertinent History Female Surgical History: No Pertinent History Other Surgical History: EGD Significant Family History: no pertinent family hx - Female History Hx Now: (unkn) - Social History Smoking Status: Never smoker How long have you smoked: vape Exposure to second hand smoke: No Drug Use: none Patient Lives Alone: No - Nursing Vital Signs Nursing Vital Signs: Initial Vital Signs Temperature 98 F 02/12/24 15:55 Pulse Rate 91 H 02/12/24 15:55 Respiratory Rate 27 H 02/12/24 15:55 Blood Pressure 104/73 02/12/24 15:55 O2 Sat by Pulse Oximetry 99 02/12/24 15:55 Pain Scale Pain Intensity 0 - Physical Exam General Appearance: no apparent distress, alert, anxiety Eye Exam: PERRL/EOMI Ears, Nose, Throat Exam: normal ENT inspection, pharynx normal, moist mucous membranes Neck Exam: normal inspection, full range of motion Respiratory Exam: normal breath sounds, lungs clear Cardiovascular Exam: regular rate/rhythm, normal heart sounds Gastrointestinal/Abdomen Exam: soft, normal bowel sounds, No tenderness Back Exam: normal inspection, normal range of motion Extremity Exam: normal inspection, normal range of motion Neurologic Exam: alert, oriented x 3, cooperative, No normal mood/affect (Anxious) Skin Exam: normal color SpO2 Interpretation: normal SpO2: 99 O2 Delivery: Room Air - Course Nursing assessment & vital signs reviewed: Yes EKG Interpreted by Me: RATE ([id number]), Sinus Rhythm, NORMAL AXIS, NORMAL INTERVALS, NORMAL QRS Ordered Tests: Active Orders 24 hr Category Date Time Status Academic Services Coordinator STAT Care 02/12/24 16:10 Active EKG-ER Only STAT Care 02/12/24 16:10 Active IV Insertion STAT Care 02/12/24 16:10 Active CHEST 1 VIEW (PORTABLE) Stat Exams 02/12/24 17:06 Taken CBC W DIFF Stat Lab 02/12/24 16:30 Completed CMP Stat Lab 02/12/24 16:30 Completed HCG QUALITATIVE, URINE Stat Lab 02/12/24 Ordered TROPONIN Q4H Lab 02/12/24 16:30 Completed TROPONIN Q4H Lab 02/12/24 20:15 Ordered TROPONIN Q4H Lab 02/13/24 00:15 Ordered Medication Summary Discontinued Medications Generic Name Dose Route Start Last Admin Trade Name Freq PRN Reason Stop Dose Admin Aspirin 324 mg 02/12/24 16:10 02/12/24 16:16 Aspirin 81 Mg Tab.Chew PO 02/12/24 16:11 324 mg STAT ONE Administration Aspirin Confirm 02/12/24 16:16 Aspirin 81 Mg Tab.Chew Administered 02/12/24 16:17 Dose 324 mg .ROUTE .STK-MED ONE Lab/Rad Data: Laboratory Result Diagrams 02/12/24 16:30 02/12/24 16:30 Laboratory Results 02/12/24 02/12/24 02/12/24 Range/Units 16:30 16:30 16:30 WBC 6.1 (4.0-10.5) x10^3/uL RBC 4.43 (4.1-5.4) x10^6/uL Hgb 12.5 (12.0-16.0) g/dL Hct 38.0 (35-47) % MCV 85.8 (78-100) fL MCH 28.2 (26-32) pg MCHC 32.9 (32-36) g/dL RDW 12.9 (11.5-14.0) % Plt Count 214 (150-450) x10^3/uL MPV 10.3 (7.5-11.0) fL Gran % 62.3 (36.0-66.0) % Immature Gran % (Auto) 0.2 (0.00-0.4) % Nucleat RBC Rel Count 0.0 (0.00-0.1) % Eos # (Auto) 0.17 (0-0.5) x10^3/uL Immature Gran # (Auto) 0.01 (0.00-0.03) x10^3u/L Absolute Lymphs (auto) 1.67 (1.0-4.6) x10^3/uL Absolute Monos (auto) 0.44 (0.0-1.3) x10^3/uL Absolute Nucleated RBC 0.00 (0.00-0.01) x10^3u/L Lymphocytes % 27.2 (24.0-44.0) % Monocytes % 7.2 (0.0-12.0) % Eosinophils % 2.8 (0.00-5.0) % Basophils % 0.3 (0.0-0.4) % Absolute Granulocytes 3.82 (1.4-6.9) x10^3/uL Basophils # 0.02 (0-0.4) x10^3/uL Sodium 140 (135-145) mmol/L Potassium 3.3 L (3.5-5.1) mmol/L Chloride 107 (98-107) mmol/L Carbon Dioxide 25 (22-30) mmol/L Anion Gap 11.1 (5-15) MEQ/L BUN 9 (7-17) mg/dL Creatinine 0.66 (0.52-1.04) mg/dL Estimated GFR 127.1 ML/MIN Glucose 97 (74-106) mg/dL Calcium 8.9 (8.4-10.2) mg/dL Total Bilirubin 0.80 (0.2-1.3) mg/dL AST 19 (14-36) U/L ALT 14 (0-35) U/L Alkaline Phosphatase 69 (38-126) U/L Troponin I < 0.012 (0.000-0.034) ng/mL Serum Total Protein 7.4 (6.3-8.2) g/dL Albumin 4.2 (3.5-5.0) g/dL - Progress Progress: improved, re-examined Air Movement: good Progress Note: 02/12/24 18:07 23 years old is evaluated in the ER for intermittent chest pain for 2 weeks. Patient pain is resolved on presentation in the ER. The EKG is normal sinus rhythm with no acute ischemic changes. She is given aspirin. Workup showed normal white count, unremarkable chemistries including troponins. Patient chest x-ray negative for any acute cardiopulmonary findings reviewed by me, official report is pending. Patient remained chest pain-free throughout her stay in the ER. She is low heart score and with her pain going off and on for quite some time and 1 negative troponin rules it out. I do not think patient pain is typical of ACS, do not think patient needs second troponin. She is PERC negative and has no difficulty breathing with a saturation of 98% on room air. I believe patient has some element of anxiety causing her symptoms. Recommended outpatient follow-up. Discussed signs symptoms of worsening needing return to ER which she seems understanding. Stable for discharge. Blood Culture(s) Obtained: No Antibiotics given: No Counseled pt/family regarding: lab results, diagnosis, need for follow-up, rad results Medical Desision Making - Independent Historian Additional History obtained from: Spouse - Diagnostic Testing Diagnostic test were ordered, analyzed, and reviewed by me: Yes Radiological Interpretation: Interpreted by me, Reviewed by me - Departure Departure Disposition: Home Clinical Impression: Atypical chest pain, Anxiety Condition: Stable Critical Care Time: No Referrals: DAQUAN HARTLEY [Primary Care Provider] - Follow up with PCP 1 day Instructions: Angina (DC) Additional Instructions: Follow-up with your primary care for reevaluation 1 to 2 days. Return to ER for worsening chest pain or if having palpitations/difficulty breathing etc.
[2024-02-12] MEDS: BABY ASPIRIN 81 MG CHEW PO ONE (16:16)
[2024-02-12] MEDS ORDERED: BABY ASPIRIN 81 MG CHEW ONE (16:16)
[2024-02-12 16:32] LABS: Absolute Neutrophil Ct (ANC) 3.82 x10^3/uL (1.4-6.9); BASOPHIL % 0.3 % (0.0-0.4); Basophil (Absolute #) 0.02 x10^3/uL (0-0.4); Eosinophil % 2.8 % (0.00-5.0); Eosinophil (Absolute #) 0.17 x10^3/uL (0-0.5); Hemoglobin 12.5 g/dL (12.0-16.0); IMMATURE GRAN # 0.01 x10^3u/L (0.00-0.03); IMMATURE GRAN % 0.2 % (0.00-0.4); Lymphocyte (Absolute #) 1.67 x10^3/uL (1.0-4.6); Lymphocytes % 27.2 % (24.0-44.0); Mean Cell Volume 85.8 fL (78-100); Mean Corpuscular Hemoglobin 28.2 pg (26-32); Mean Corpuscular Hgb Concent. 32.9 g/dL (32-36); Mean Platelet Volume 10.3 fL (7.5-11.0); Monocyte (Absolute #) 0.44 x10^3/uL (0.0-1.3); Monocytes % 7.2 % (0.0-12.0); Neutrophil % 62.3 % (36.0-66.0); Platelet Count 214 x10^3/uL (150-450); Red Blood Count 4.43 x10^6/uL (4.1-5.4); Red Cell Distribution Width 12.9 % (11.5-14.0); White Blood Count 6.1 x10^3/uL (4.0-10.5)
[2024-02-12 16:49] LABS: ALBUMIN 4.2 g/dL (3.5-5.0); ANION GAP 11.1 MEQ/L (5-15); BILIRUBIN,TOTAL 0.8 mg/dL (0.2-1.3); Calcium 8.9 mg/dL (8.4-10.2); Creatinine 1 0.66 mg/dL (0.52-1.04); EST GLOMERULAR FILTRATION RATE 127.1 ML/MIN; Potassium 3.3 mmol/L (3.5-5.1); Total Protein 7.4 g/dL (6.3-8.2)
[2024-02-12 18:06] VITALS: BP 105/61; PULSE 72; RESP 23
--- NOTE | 2024-02-12 20:00 | XRAY ---
Indication: Chest pain. Comparison: March 28, 2023 Portable chest again demonstrates normal heart, lungs, and bony thorax with incidental tiny perihilar calcified granulomas.
== END 2024-02-12 18:30 | disposition home or self-care (01) ==
LOC: ED 15:46
DX: R07.89 Other chest pain (principal); F41.9 Anxiety disorder, unspecified; Z79.899 Other long term (current) drug therapy
CPT/HCPCS: 36415; 71045; 80053; 84484; 85025; 93005; 93041; 99284; A9270-GY

== ENCOUNTER 2025-01-26 15:02 | Emergency (ER) | payer OTHER ==
--- NOTE | 2025-01-26 15:21 | ERPHSYRPT ---
- History of Present Illness Time Seen by Provider: 01/26/25 15:21 Historian: patient, family Exam Limitations: no limitations Physician History: Pt had onset of bilateral nipple sensation and dyspepsia and last period abnormal and this one missed. positive for preg on home test. also for several months the left nipple has had drainage from the previous piercing tract. abd is nontender without peritoneal signs. no vag bleeding reported. N but no V. left nipple without fluctuance. no drainage erythema or tenderness today. I have advised her to see her NIP WRAPPER to consider furhter treatment but will begin bactroban. Discussed with pt and available family risks and benefits of testing/Tx including CBC, HCG quant, US OB, bactroban for nipple, and they wish to proceed so these are ordered. Results discussed with pt and available family. Timing/Duration: week(s) Activities at Onset: none Quality: other (as above) Abdominal Pain Onset Location: epigastric Pain Radiation: no radiation Severity of Pain-Max: mild Severity of Pain-Current: mild Modifying Factors: Improves With: nothing Associated Symptoms: heartburn, nausea Previous symptoms: same symptoms as today, no recent treatment Allergies/Adverse Reactions: No Known Drug Allergies Allergy (Verified 01/26/25 15:40) Home Medications: Cyanocobalamin (Vitamin B-12) [Vitamin B12] 500 mg PO DAILY 01/26/25 [History] Lamotrigine [Lamotrigine ER] 2 tab PO BID 01/26/25 [History] Sertraline HCl [Zoloft] 1 tab PO DAILY 01/26/25 [History] Hx Tetanus, Diphtheria Vaccination/Date Given: Yes Hx Influenza Vaccination/Date Given: No Hx Pneumococcal Vaccination/Date Given: No Travel Risk - Emerging Infectious Disease Are you exhibiting symptoms associated with any current EIDs: No - Review of Systems Constitutional: No Fever, No Chills Eyes: No Symptoms Ears, Nose, & Throat: No Symptoms Respiratory: No Cough, No Dyspnea Cardiac: No Chest Pain, No Edema, No Syncope Abdominal/Gastrointestinal: Abdominal Pain, Nausea, No Vomiting, No Diarrhea Genitourinary Symptoms: No Dysuria Musculoskeletal: No Back Pain, No Neck Pain Skin: No Rash Neurological: No Dizziness, No Focal Weakness, No Sensory Changes Psychological: No Symptoms Endocrine: No Symptoms Hematologic/Lymphatic: No Symptoms Immunological/Allergic: No Symptoms All Other Systems: Reviewed and Negative - Past Medical History Pertinent Past Medical History: Yes Neurological History: Migraines, Other ENT History: No Pertinent History Cardiac History: No Pertinent History Respiratory History: No Pertinent History Endocrine Medical History: No Pertinent History Musculoskeletal History: No Pertinent History GI Medical History: GERD, Gallbladder Disease History: No Pertinent History Psycho-Social History: Anxiety, Depression Female Reproductive Disorders: No Pertinent History Other Medical History: recent n/v, diarrhea, stomach bloating. wisdom tooth zenaida chano 05/24/23 with dry socket. - Past Surgical History Past Surgical History: Yes Neuro Surgical History: No Pertinent History Cardiac: No Pertinent History Respiratory: No Pertinent History Gastrointestinal: Cholecystectomy Genitourinary: No Pertinent History Musculoskeletal: No Pertinent History Female Surgical History: No Pertinent History Other Surgical History: EGD Significant Family History: no pertinent family hx - Female History Hx Last Menstrual Period: 02/2014 - Social History Smoking Status: Never smoker How long have you smoked: vape Exposure to second hand smoke: No Drug Use: none Patient Lives Alone: No - Social Determinants of Health Will the patient participate in the screening: Yes Do you worry about a steady place to live?: No In the past 12 months,have you had to go without utilities?: No Transportation Issues: No Has anyone in your support network made you feel unsafe?: No Have you or anyone in your house had to go w/o enough food: No - Nursing Vital Signs Nursing Vital Signs: Initial Vital Signs Temperature 98.3 F 01/26/25 15:28 Pulse Rate 73 01/26/25 15:28 Respiratory Rate 16 01/26/25 15:28 Blood Pressure 104/69 01/26/25 15:28 O2 Sat by Pulse Oximetry 97 01/26/25 15:28 Pain Scale Pain Intensity 2 - Physical Exam General Appearance: no apparent distress, alert Eye Exam: PERRL/EOMI, eyes nml inspection Ears, Nose, Throat Exam: normal ENT inspection, pharynx normal, moist mucous membranes Neck Exam: normal inspection, non-tender, supple, full range of motion Respiratory Exam: normal breath sounds, lungs clear, No respiratory distress Cardiovascular Exam: regular rate/rhythm, normal heart sounds Gastrointestinal/Abdomen Exam: soft, No tenderness, No mass Pelvic Exam: deferred Rectal Exam: deferred Back Exam: normal inspection, normal range of motion, No CVA tenderness, No vertebral tenderness Extremity Exam: normal inspection, normal range of motion, pelvis stable Neurologic Exam: alert, oriented x 3, cooperative, normal mood/affect, nml cerebellar function, sensation nml, No motor deficits Skin Exam: normal color, warm, dry SpO2 Interpretation: normal SpO2: 97 O2 Delivery: Room Air - Course Nursing assessment & vital signs reviewed: Yes - Radiology Ultrasound Exam Pelvis Ultrasound: tele radiology report, negative, No Torsion/Nml Flow, Other (No ectopic seen and no definite IUP just decidual reaction and right corpus luteum cyst. ) Ordered Tests: Active Orders 24 hr Category Date Time Status PELVIC [US] Stat Exams 01/26/25 15:59 Taken CBC W DIFF Stat Lab 01/26/25 16:06 Completed CMP Stat Lab 01/26/25 16:06 Completed HCG, Quantitative (Inhouse) Stat Lab 01/26/25 16:06 Completed UA W/RFX UR CULTURE Stat Lab 01/26/25 16:06 Completed Lab/Rad Data: Laboratory Result Diagrams 01/26/25 16:06 01/26/25 16:06 Laboratory Results 01/26/25 01/26/25 01/26/25 Range/Units 16:06 16:06 16:06 WBC 7.2 (3.98-10.04) x10^3/uL RBC 4.15 (3.93-5.22) x10^6/uL Hgb 11.8 (11.2-15.7) g/dL Hct 35.7 (34.1-44.9) % MCV 86.0 (79.4-94.8) fL MCH 28.4 (25.6-32.2) pg MCHC 33.1 (32.2-35.5) g/dL RDW 12.9 (11.7-14.4) % Plt Count 244 (182-369) x10^3/uL MPV 9.8 (9.4-12.3) fL Gran % 71.3 H (34.0-71.1) % Immature Gran % (Auto) 0.4 (0.001-0.429) % Nucleat RBC Rel Count 0.0 (0.00-0.2) % Eos # (Auto) 0.11 (0.04-0.36) x10^3/uL Immature Gran # (Auto) 0.03 (0.001-0.031) x10^3u/L Absolute Lymphs (auto) 1.40 (1.18-3.74) x10^3/uL Absolute Monos (auto) 0.50 (0.24-0.86) x10^3/uL Absolute Nucleated RBC 0.00 (0.00-0.012) x10^3u/L Lymphocytes % 19.5 (19.3-51.7) % Monocytes % 7.0 (4.7-12.5) % Eosinophils % 1.5 (0.7-5.8) % Basophils % 0.3 (0.1-1.2) % Absolute Granulocytes 5.13 (1.56-6.13) x10^3/uL Basophils # 0.02 (0.01-0.08) x10^3/uL Sodium 140 (135-145) mmol/L Potassium 3.5 (3.5-5.1) mmol/L Chloride 103 (98-107) mmol/L Carbon Dioxide 23 (22-30) mmol/L Anion Gap 16.7 H (5-15) MEQ/L BUN 13 (7-17) mg/dL Creatinine 0.59 (0.52-1.04) mg/dL Estimated GFR 129.8 ML/MIN Glucose 79 (74-106) mg/dL Calcium 8.5 (8.4-10.2) mg/dL Total Bilirubin 0.80 (0.2-1.3) mg/dL AST 26 (14-36) U/L ALT 21 (0-35) U/L Alkaline Phosphatase 84 (38-126) U/L Serum Total Protein 7.4 (6.3-8.2) g/dL Albumin 4.5 (3.5-5.0) g/dL Beta HCG, Quant mIU/ml Urine Color Yellow (Yellow) Urine Appearance Clear (Clear) Urine pH 6.5 (4.6-8.0) Ur Specific [place] >=1.030 A (1.005-1.030) Urine Protein Negative (Negative) Urine Glucose (UA) Negative (Negative) mg/dL Urine Ketones Trace A (Negative) Urine Blood Trace (Negative) Urine Nitrite Negative (Negative) Urine Bilirubin Negative (Negative) Urine Urobilinogen 1.0 A (0.2) mg/dL Ur Leukocyte Esterase Trace A (Negative) U Hyaline Cast (Auto) NONE SEEN (0-2) /LPF Urine Microscopic RBC 3-5 (0-5) /HPF Urine Microscopic WBC 3-5 (0-5) /HPF Ur Epithelial Cells Moderate A (None Seen) /HPF Urine Bacteria Few A (None Seen) /HPF Urine Culture Reflexed NO (NO) 01/26/25 Range/Units 16:06 WBC (3.98-10.04) x10^3/uL RBC (3.93-5.22) x10^6/uL Hgb (11.2-15.7) g/dL Hct (34.1-44.9) % MCV (79.4-94.8) fL MCH (25.6-32.2) pg MCHC (32.2-35.5) g/dL RDW (11.7-14.4) % Plt Count (182-369) x10^3/uL MPV (9.4-12.3) fL Gran % (34.0-71.1) % Immature Gran % (Auto) (0.001-0.429) % Nucleat RBC Rel Count (0.00-0.2) % Eos # (Auto) (0.04-0.36) x10^3/uL Immature Gran # (Auto) (0.001-0.031) x10^3u/L Absolute Lymphs (auto) (1.18-3.74) x10^3/uL Absolute Monos (auto) (0.24-0.86) x10^3/uL Absolute Nucleated RBC (0.00-0.012) x10^3u/L Lymphocytes % (19.3-51.7) % Monocytes % (4.7-12.5) % Eosinophils % (0.7-5.8) % Basophils % (0.1-1.2) % Absolute Granulocytes (1.56-6.13) x10^3/uL Basophils # (0.01-0.08) x10^3/uL Sodium (135-145) mmol/L Potassium (3.5-5.1) mmol/L Chloride (98-107) mmol/L Carbon Dioxide (22-30) mmol/L Anion Gap (5-15) MEQ/L BUN (7-17) mg/dL Creatinine (0.52-1.04) mg/dL Estimated GFR ML/MIN Glucose (74-106) mg/dL Calcium (8.4-10.2) mg/dL Total Bilirubin (0.2-1.3) mg/dL AST (14-36) U/L ALT (0-35) U/L Alkaline Phosphatase (38-126) U/L Serum Total Protein (6.3-8.2) g/dL Albumin (3.5-5.0) g/dL Beta HCG, Quant 486.32 mIU/ml Urine Color (Yellow) Urine Appearance (Clear) Urine pH (4.6-8.0) Ur Specific [place] (1.005-1.030) Urine Protein (Negative) Urine Glucose (UA) (Negative) mg/dL Urine Ketones (Negative) Urine Blood (Negative) Urine Nitrite (Negative) Urine Bilirubin (Negative) Urine Urobilinogen (0.2) mg/dL Ur Leukocyte Esterase (Negative) U Hyaline Cast (Auto) (0-2) /LPF Urine Microscopic RBC (0-5) /HPF Urine Microscopic WBC (0-5) /HPF Ur Epithelial Cells (None Seen) /HPF Urine Bacteria (None Seen) /HPF Urine Culture Reflexed (NO) - Progress Progress: improved, re-examined Progress Note: 01/26/25 18:48 awaiting US report Counseled pt/family regarding: lab results, diagnosis, need for follow-up, rad results Medical Desision Making - Independent Historian Additional History obtained from: Spouse - Discussion of managment Reviewed:: Test results, Need for additional workup Agreed on:: Treatment plan, need for follow-up - Diagnostic Testing Diagnostic test were ordered, analyzed, and reviewed by me: Yes Radiological Interpretation: Reviewed by me - Risk of complications The pt has a mod risk of morbidity or mortality based on: Need for prescription drug management - Departure Departure Disposition: Home Clinical Impression: nipple ring tract irritation/drainage, Condition: Good Critical Care Time: No Referrals: DAQUAN HARTLEY [Primary Care Provider] - Follow up/PCP as directed Instructions: symptoms Additional Instructions: use the bactroban on the nipple area twice daily until healed and followup with your NIP WRAPPER to determine if further treatment may be indicated. It appears that you have a recurring draining tract in the area of the old piercing. ALthough we did not see any complications for the on ultrasound it is still too early to confirm the exact location so seeing your NIP WRAPPER is very important. There is a cropus luteum cyst on the right ovary which is often normal after ovulation. See you NIP WRAPPER also for f/u of your , and return meantime if any bleeding, vomiting, dizziness, pain of other concerns. Followup with your NIP WRAPPER for the best treatment of your reflux in . Prescriptions: Mupirocin [Bactroban OINTMENT] 22 gm TP BID #1 cartridge
[2025-01-26 15:57] VITALS: TEMP 98.3
[2025-01-26 16:16] LABS: Appearance Clear (Clear); Bacteria Few /HPF (None Seen); Bilirubin Negative (Negative); Blood Trace (Negative); Epithelial Cells Moderate /HPF (None Seen); Glucose, Urine Negative (Negative); Hyaline Casts NONE SEEN /LPF (0-2); Ketones Trace (Negative); Leukocyte Esterase Trace (Negative); Nitrite Negative (Negative); Ph 6.5 (4.6-8.0); Protein,Urine Dip Negative (Negative); Specific Gravity >=1.030 (1.005-1.030)
[2025-01-26 16:22] LABS: Absolute Neutrophil Ct (ANC) 5.13 x10^3/uL (1.56-6.13); BASOPHIL % 0.3 % (0.1-1.2); Basophil (Absolute #) 0.02 x10^3/uL (0.01-0.08); Eosinophil % 1.5 % (0.7-5.8); Eosinophil (Absolute #) 0.11 x10^3/uL (0.04-0.36); Hematocrit 35.7 % (34.1-44.9); Hemoglobin 11.8 g/dL (11.2-15.7); IMMATURE GRAN # 0.03 x10^3u/L (0.001-0.031); IMMATURE GRAN % 0.4 % (0.001-0.429); Lymphocytes % 19.5 % (19.3-51.7); Mean Corpuscular Hemoglobin 28.4 pg (25.6-32.2); Mean Corpuscular Hgb Concent. 33.1 g/dL (32.2-35.5); Mean Platelet Volume 9.8 fL (9.4-12.3); Neutrophil % 71.3 % (34.0-71.1); Platelet Count 244 x10^3/uL (182-369); Red Blood Count 4.15 x10^6/uL (3.93-5.22); Red Cell Distribution Width 12.9 % (11.7-14.4); White Blood Count 7.2 x10^3/uL (3.98-10.04)
[2025-01-26 16:35] LABS: ALBUMIN 4.5 g/dL (3.5-5.0); ANION GAP 16.7 MEQ/L (5-15); BILIRUBIN,TOTAL 0.8 mg/dL (0.2-1.3); Calcium 8.5 mg/dL (8.4-10.2); Creatinine 1 0.59 mg/dL (0.52-1.04); EST GLOMERULAR FILTRATION RATE 129.8 ML/MIN; Potassium 3.5 mmol/L (3.5-5.1); Total Protein 7.4 g/dL (6.3-8.2)
[2025-01-26 18:05] VITALS: BP 97/78
[2025-01-26 18:32] VITALS: O2SAT 97
[2025-01-26 19:11] VITALS: PULSE 70; RESP 16
--- NOTE | 2025-01-26 20:30 | XRAY ---
Indication: Adnexal/abdomen pain. Two-dimensional transvaginal pelvic sonogram performed. Comparison: May 06, 2021 Uterus again retroverted measuring 6.7 x 3.4 x 5.6 cm. No focal solid/cystic uterine mass. Endometrial stripe now thickened measuring 1.7 cm. No endometrial cavity mass or fluid collection. Right ovary measures 3.0 x 2.1 x 1.8 cm and left measures 2.1 x 1.5 x 2.7 cm with normal perfusion bilaterally. No suspicious adnexal mass or free fluid. Impression: Thickened endometrial stripe that should be correlated with patient's menstrual cycle. Remaining transvaginal pelvic sonogram is negative. Comment: Preliminary report was given.
== END 2025-01-26 19:18 | disposition home or self-care (01) ==
LOC: ED 15:02
DX: N64.52 Nipple discharge (principal); Z33.1 Pregnant state, incidental; Z79.899 Other long term (current) drug therapy
CPT/HCPCS: 36415; 76856; 80053; 81001; 84702; 85025; 99284

== ENCOUNTER 2025-03-31 22:33 | Emergency (ER) | payer OTHER ==
--- NOTE | 2025-03-31 22:37 | ERPHSYRPT ---
- History of Present Illness Time Seen by Provider: 03/31/25 22:37 Historian: patient, family Exam Limitations: no limitations Physician History: This is a 25-year-old white female patient Dr. 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 Grande with the complaint of vomiting and diarrhea intermittently for 2 days. The patient is approximately 13 weeks with twins. The patient was out in the sun for an extended period of time over the last 2 days. She vomited once yesterday, 4 times today and had 2 episodes of diarrheal stools today. She is unable to hold anything down in terms of oral intake. She has no chest pain. She has no abdominal pain. The nurses of the OB department came down to the emergency department and located the heart tones for both fetuses and they are normal. Patient has a history of anxiety, depression, migraine headaches and gastroesophageal reflux disease. Timing/Duration: yesterday Activities at Onset: none Severity of Pain-Max: none Severity of Pain-Current: none Modifying Factors: Improves With: vomiting Associated Symptoms: diarrhea, nausea, vomiting Previous symptoms: no prior history, no recent treatment Allergies/Adverse Reactions: No Known Drug Allergies Allergy (Verified 03/31/25 22:45) Home Medications: Cyanocobalamin (Vitamin B-12) [Vitamin B12] 500 mg PO DAILY 01/26/25 [History] Lamotrigine [Lamotrigine ER] 2 tab PO BID 01/26/25 [History] Sertraline HCl [Zoloft] 1 tab PO DAILY 01/26/25 [History] Pnv No.103/Folic/Om3s/Fish Oil [ Gummies] 2 tab PO HS 03/31/25 [History] Hx Tetanus, Diphtheria Vaccination/Date Given: Yes Hx Influenza Vaccination/Date Given: No Hx Pneumococcal Vaccination/Date Given: No Travel Risk - International Travel Have you traveled outside of the country in past 3 weeks: No - Emerging Infectious Disease Are you exhibiting symptoms associated with any current EIDs: No - Review of Systems Constitutional: No Symptoms Eyes: No Symptoms Ears, Nose, & Throat: No Symptoms Respiratory: No Symptoms Cardiac: No Symptoms Abdominal/Gastrointestinal: Vomiting, Diarrhea Genitourinary Symptoms: No Symptoms Musculoskeletal: No Symptoms Skin: No Symptoms Neurological: No Symptoms Psychological: No Symptoms Endocrine: No Symptoms Hematologic/Lymphatic: No Symptoms Immunological/Allergic: No Symptoms All Other Systems: Reviewed and Negative - Past Medical History Pertinent Past Medical History: Yes Neurological History: Migraines, Other ENT History: No Pertinent History Cardiac History: No Pertinent History Respiratory History: No Pertinent History Endocrine Medical History: No Pertinent History Musculoskeletal History: No Pertinent History GI Medical History: GERD, Gallbladder Disease History: No Pertinent History Psycho-Social History: Anxiety, Depression Female Reproductive Disorders: No Pertinent History Other Medical History: recent n/v, diarrhea, stomach bloating. wisdom tooth removal 05/24/23 with dry socket. - Past Surgical History Past Surgical History: Yes Neuro Surgical History: No Pertinent History Cardiac: No Pertinent History Respiratory: No Pertinent History Gastrointestinal: Cholecystectomy Genitourinary: No Pertinent History Musculoskeletal: No Pertinent History Female Surgical History: No Pertinent History Other Surgical History: EGD Significant Family History: no pertinent family hx - Female History Hx Last Menstrual Period: 02/2014 - Social History Smoking Status: Never smoker How long have you smoked: vape Exposure to second hand smoke: No Drug Use: none Patient Lives Alone: No - Social Determinants of Health Will the patient participate in the screening: Yes Do you worry about a steady place to live?: No In the past 12 months,have you had to go without utilities?: No Transportation Issues: No Has anyone in your support network made you feel unsafe?: No Have you or anyone in your house had to go w/o enough food: No - Nursing Vital Signs Nursing Vital Signs: Initial Vital Signs Temperature 97.6 F 03/31/25 22:44 Pulse Rate 78 03/31/25 22:44 Respiratory Rate 16 03/31/25 22:44 Blood Pressure 104/66 03/31/25 22:44 O2 Sat by Pulse Oximetry 100 03/31/25 22:44 Pain Scale Pain Intensity 0 - Physical Exam General Appearance: no apparent distress, alert, anxiety Ears, Nose, Throat Exam: normal ENT inspection, moist mucous membranes Neck Exam: normal inspection, non-tender, supple, full range of motion Respiratory Exam: normal breath sounds, lungs clear, airway intact, No chest tenderness, No respiratory distress Cardiovascular Exam: regular rate/rhythm, normal heart sounds, normal peripheral pulses Gastrointestinal/Abdomen Exam: soft, normal bowel sounds, No tenderness Pelvic Exam: not done Rectal Exam: not done Back Exam: normal inspection, normal range of motion, No CVA tenderness, No vertebral tenderness Extremity Exam: normal inspection, normal range of motion, pelvis stable Neurologic Exam: alert, oriented x 3, cooperative, tuber helper II-XII nml as tested, normal mood/affect, nml cerebellar function, nml station & gait, sensation nml Skin Exam: normal color, warm, dry Lymphatic Exam: No adenopathy SpO2 Interpretation: normal O2 Delivery: Room Air - Course Nursing assessment & vital signs reviewed: Yes Ordered Tests: Active Orders 24 hr Category Date Time Status IV Insertion STAT Care 03/31/25 23:30 Active AMYLASE Stat Lab 03/31/25 23:37 Completed CBC W DIFF Stat Lab 03/31/25 23:37 Completed CMP Stat Lab 03/31/25 23:37 Completed LIPASE Stat Lab 03/31/25 23:37 Completed Lactic Acid Stat Lab 03/31/25 23:50 Completed UA W/RFX UR CULTURE Stat Lab 03/31/25 23:30 Completed Medication Summary Discontinued Medications Generic Name Dose Route Start Last Admin Trade Name Freq PRN Reason Stop Dose Admin Sodium Chloride 1,000 mls @ 999 mls/hr 03/31/25 23:30 03/31/25 23:41 Sodium Chloride 0.9% 1000 Ml IV 04/01/25 00:30 999 mls/hr .Q1H1M STA Administration Sodium Chloride Confirm 03/31/25 23:39 Sodium Chloride 0.9% 1000 Ml Administered 03/31/25 23:40 Dose 1,000 mls @ ud .ROUTE .STK-MED ONE Ondansetron HCl 4 mg 03/31/25 23:30 03/31/25 23:41 Ondansetron Hcl 4 Mg/2 Ml Vial IV 03/31/25 23:31 4 mg STAT ONE Administration Ondansetron HCl Confirm 03/31/25 23:39 Ondansetron Hcl 4 Mg/2 Ml Vial Administered 03/31/25 23:40 Dose 4 mg .ROUTE .STK-MED ONE Potassium Chloride 10 meq 04/01/25 00:04 04/01/25 00:19 Potassium Chloride Tab 10 Meq Tab PO 04/01/25 00:05 10 meq STAT ONE Administration Potassium Chloride Confirm 04/01/25 00:18 Potassium Chloride Tab 10 Meq Tab Administered 04/01/25 00:19 Dose 10 meq .ROUTE .STK-MED ONE Lab/Rad Data: Laboratory Result Diagrams 03/31/25 23:37 03/31/25 23:37 Laboratory Results 03/31/25 03/31/25 03/31/25 Range/Units 23:50 23:37 23:37 WBC 8.1 (3.98-10.04) x10^3/uL RBC 4.15 (3.93-5.22) x10^6/uL Hgb 11.8 (11.2-15.7) g/dL Hct 34.1 (34.1-44.9) % MCV 82.2 (79.4-94.8) fL MCH 28.4 (25.6-32.2) pg MCHC 34.6 (32.2-35.5) g/dL RDW 12.9 (11.7-14.4) % Plt Count 228 (182-369) x10^3/uL MPV 10.4 (9.4-12.3) fL Gran % 71.4 H (34.0-71.1) % Immature Gran % (Auto) 0.4 (0.001-0.429) % Nucleat RBC Rel Count 0.0 (0.00-0.2) % Eos # (Auto) 0.07 (0.04-0.36) x10^3/uL Immature Gran # (Auto) 0.03 (0.001-0.031) x10^3u/L Absolute Lymphs (auto) 1.64 (1.18-3.74) x10^3/uL Absolute Monos (auto) 0.54 (0.24-0.86) x10^3/uL Absolute Nucleated RBC 0.00 (0.00-0.012) x10^3u/L Lymphocytes % 20.4 (19.3-51.7) % Monocytes % 6.7 (4.7-12.5) % Eosinophils % 0.9 (0.7-5.8) % Basophils % 0.2 (0.1-1.2) % Absolute Granulocytes 5.75 (1.56-6.13) x10^3/uL Basophils # 0.02 (0.01-0.08) x10^3/uL Sodium 135 (135-145) mmol/L Potassium 3.3 L (3.5-5.1) mmol/L Chloride 102 (98-107) mmol/L Carbon Dioxide 23 (22-30) mmol/L Anion Gap 13.0 (5-15) MEQ/L BUN 5 L (7-17) mg/dL Creatinine 0.38 L (0.52-1.04) mg/dL Estimated GFR 143.4 ML/MIN Glucose 89 (74-106) mg/dL Lactic Acid 0.6 (0.4-2.0) Calcium 9.2 (8.4-10.2) mg/dL Total Bilirubin 0.60 (0.2-1.3) mg/dL AST 30 (14-36) U/L ALT 22 (0-35) U/L Alkaline Phosphatase 85 (38-126) U/L Serum Total Protein 7.2 (6.3-8.2) g/dL Albumin 4.3 (3.5-5.0) g/dL Amylase 55 (30-110) U/L Lipase 55 (23-300) U/L Urine Color (Yellow) Urine Appearance (Clear) Urine pH (4.6-8.0) Ur Specific [place] (1.005-1.030) Urine Protein (Negative) Urine Glucose (UA) (Negative) mg/dL Urine Ketones (Negative) Urine Blood (Negative) Urine Nitrite (Negative) Urine Bilirubin (Negative) Urine Urobilinogen (0.2) mg/dL Ur Leukocyte Esterase (Negative) U Hyaline Cast (Auto) (0-2) /LPF Urine Microscopic RBC (0-5) /HPF Urine Microscopic WBC (0-5) /HPF Ur Epithelial Cells (None Seen) /HPF Urine Bacteria (None Seen) /HPF Urine Culture Reflexed (NO) 03/31/25 Range/Units 23:30 WBC (3.98-10.04) x10^3/uL RBC (3.93-5.22) x10^6/uL Hgb (11.2-15.7) g/dL Hct (34.1-44.9) % MCV (79.4-94.8) fL MCH (25.6-32.2) pg MCHC (32.2-35.5) g/dL RDW (11.7-14.4) % Plt Count (182-369) x10^3/uL MPV (9.4-12.3) fL Gran % (34.0-71.1) % Immature Gran % (Auto) (0.001-0.429) % Nucleat RBC Rel Count (0.00-0.2) % Eos # (Auto) (0.04-0.36) x10^3/uL Immature Gran # (Auto) (0.001-0.031) x10^3u/L Absolute Lymphs (auto) (1.18-3.74) x10^3/uL Absolute Monos (auto) (0.24-0.86) x10^3/uL Absolute Nucleated RBC (0.00-0.012) x10^3u/L Lymphocytes % (19.3-51.7) % Monocytes % (4.7-12.5) % Eosinophils % (0.7-5.8) % Basophils % (0.1-1.2) % Absolute Granulocytes (1.56-6.13) x10^3/uL Basophils # (0.01-0.08) x10^3/uL Sodium (135-145) mmol/L Potassium (3.5-5.1) mmol/L Chloride (98-107) mmol/L Carbon Dioxide (22-30) mmol/L Anion Gap (5-15) MEQ/L BUN (7-17) mg/dL Creatinine (0.52-1.04) mg/dL Estimated GFR ML/MIN Glucose (74-106) mg/dL Lactic Acid (0.4-2.0) Calcium (8.4-10.2) mg/dL Total Bilirubin (0.2-1.3) mg/dL AST (14-36) U/L ALT (0-35) U/L Alkaline Phosphatase (38-126) U/L Serum Total Protein (6.3-8.2) g/dL Albumin (3.5-5.0) g/dL Amylase (30-110) U/L Lipase (23-300) U/L Urine Color Yellow (Yellow) Urine Appearance Clear (Clear) Urine pH 6.5 (4.6-8.0) Ur Specific [place] 1.020 (1.005-1.030) Urine Protein Negative (Negative) Urine Glucose (UA) Negative (Negative) mg/dL Urine Ketones Trace A (Negative) Urine Blood Negative (Negative) Urine Nitrite Negative (Negative) Urine Bilirubin Negative (Negative) Urine Urobilinogen 1.0 A (0.2) mg/dL Ur Leukocyte Esterase Negative (Negative) U Hyaline Cast (Auto) NONE SEEN (0-2) /LPF Urine Microscopic RBC 0-2 (0-5) /HPF Urine Microscopic WBC 0-2 (0-5) /HPF Ur Epithelial Cells Few (None Seen) /HPF Urine Bacteria Few A (None Seen) /HPF Urine Culture Reflexed NO (NO) - Progress Progress: improved, re-examined Progress Note: 03/31/25 23:38 My medical decision making and the assignment of moderate complexity to this patient's medical issue today is based on review of the patient's past medical history, review of the patient's medication list, reviewed patient drug allergy list, history present illness and physical findings on examination. The workup in this patient includes placement of intravenous line, infusion of crystalloid solution, CBC, CMP, urinalysis and provide the patient with intravenous Zofran. Patient does not want viral swabs. She feels her condition is based on being dehydrated and heat exposure. Differential diagnosis includes but is not limited to urinary tract infection, dehydration, heat exposure 04/01/25 00:50 I interpreted the patient's laboratory data results. Based on the laboratory results, the patient has mild hypokalemia and has mild dehydration. Counseled pt/family regarding: lab results, diagnosis, need for follow-up Medical Desision Making - Independent Historian Additional History obtained from: Spouse, Family - Diagnostic Testing Diagnostic test were ordered, analyzed, and reviewed by me: Yes - Risk of complications Low Risk: Low risk of morbidity from additional dx testing or treatment - Departure Departure Disposition: Home Clinical Impression: Mild dehydration, Hypokalemia Condition: Stable Critical Care Time: No Referrals: DAQUAN DENNIS [Primary Care Provider, [facility]] - Follow up/PCP as directed Additional Instructions: Drink plenty of fluids before advancing your diet. Use your Zofran at home to control your nausea. Call your primary care physician and OB doctor today to make them aware that you had a visit here in the emergency department.
[2025-03-31 22:45] VITALS: TEMP 97.6
[2025-03-31 23:36] VITALS: O2SAT 99
[2025-03-31] MEDS ORDERED: Zofran 4 MG/2 ML VIAL ONE (23:39)
[2025-03-31] MEDS ORDERED: Sodium Chloride 0.9% 1000 ML 1,000 ML ONE (23:39)
[2025-03-31] MEDS: Zofran 4 MG/2 ML VIAL IV ONE (23:41)
[2025-03-31] MEDS: Sodium Chloride 0.9% 1000 ML 1,000 ML IV STA (23:41)
[2025-03-31 23:45] LABS: Absolute Neutrophil Ct (ANC) 5.75 x10^3/uL (1.56-6.13); BASOPHIL % 0.2 % (0.1-1.2); Basophil (Absolute #) 0.02 x10^3/uL (0.01-0.08); Eosinophil % 0.9 % (0.7-5.8); Eosinophil (Absolute #) 0.07 x10^3/uL (0.04-0.36); Hematocrit 34.1 % (34.1-44.9); Hemoglobin 11.8 g/dL (11.2-15.7); IMMATURE GRAN # 0.03 x10^3u/L (0.001-0.031); IMMATURE GRAN % 0.4 % (0.001-0.429); Lymphocyte (Absolute #) 1.64 x10^3/uL (1.18-3.74); Lymphocytes % 20.4 % (19.3-51.7); Mean Cell Volume 82.2 fL (79.4-94.8); Mean Corpuscular Hemoglobin 28.4 pg (25.6-32.2); Mean Corpuscular Hgb Concent. 34.6 g/dL (32.2-35.5); Mean Platelet Volume 10.4 fL (9.4-12.3); Monocyte (Absolute #) 0.54 x10^3/uL (0.24-0.86); Monocytes % 6.7 % (4.7-12.5); Neutrophil % 71.4 % (34.0-71.1); Platelet Count 228 x10^3/uL (182-369); Red Blood Count 4.15 x10^6/uL (3.93-5.22); Red Cell Distribution Width 12.9 % (11.7-14.4); White Blood Count 8.1 x10^3/uL (3.98-10.04)
[2025-03-31 23:53] LABS: ALBUMIN 4.3 g/dL (3.5-5.0); BILIRUBIN,TOTAL 0.6 mg/dL (0.2-1.3); Calcium 9.2 mg/dL (8.4-10.2); Creatinine 1 0.38 mg/dL (0.52-1.04); EST GLOMERULAR FILTRATION RATE 143.4 ML/MIN; Potassium 3.3 mmol/L (3.5-5.1); Total Protein 7.2 g/dL (6.3-8.2)
[2025-04-01 00:17] VITALS: RESP 16
[2025-04-01] MEDS ORDERED: Klor Con ONE (00:18)
[2025-04-01] MEDS: Klor Con PO ONE (00:19)
[2025-04-01 00:20] LABS: Appearance Clear (Clear); Bacteria Few /HPF (None Seen); Bilirubin Negative (Negative); Blood Negative (Negative); Epithelial Cells Few /HPF (None Seen); Glucose, Urine Negative (Negative); Hyaline Casts NONE SEEN /LPF (0-2); Ketones Trace (Negative); Leukocyte Esterase Negative (Negative); Nitrite Negative (Negative); Ph 6.5 (4.6-8.0); Protein,Urine Dip Negative (Negative); RBC 0-2 /HPF (0-5); WBC 0-2 /HPF (0-5)
[2025-04-01 01:13] VITALS: BP 91/57; PULSE 60
== END 2025-04-01 01:08 | disposition home or self-care (01) ==
LOC: ED 22:33
DX: E86.0 Dehydration (principal); E87.6 Hypokalemia; Z33.1 Pregnant state, incidental; Z79.899 Other long term (current) drug therapy
CPT/HCPCS: 36415; 80053; 81001; 82150; 83605; 83690; 85025; 96374; 99284; J2405; A9270-GY